=== PATIENT | female | born 1930 | race Caucasian/White ===

== ENCOUNTER 2018-02-08 13:36 | Emergency (ER) | payer OTHER ==
[2018-02-08] MEDS ORDERED: DEXAMETHASONE 4 MG TAB ONE (14:53)
[2018-02-08] MEDS ORDERED: AZITHROMYCIN 250 MG TAB ONE (14:53)
--- NOTE | 2018-02-08 14:58 | EDPHYS ---
Physician Documentation [facility] Name: Mely Vivas Age: 87 yrs Sex: Female : 1930 Arrival Date: 02/08/2018 Time: 13:39 Bed 18 Private MD: Celia Barnhart ED Physician Sedrick Cruz HPI: 02/08 14:35 This 87 yrs old Female presents to ER via Wheelchair with complaints of javier Dizziness, Ear Pain. 14:35 The patient presents with dizziness. Onset: The symptoms/episode began/occurred 3 javier day(s) ago. Context: occurred at an unknown location. Modifying factors: The symptoms are alleviated by closing eyes, holding head still, the symptoms are aggravated by movement of head. Associated signs and symptoms: Pertinent positives: nausea. Severity of symptoms: At their worst the symptoms were mild in the emergency department the symptoms are unchanged. The patient has experienced similar episodes in the past, a few times. Historical: - Allergies: 13:43 PENICILLINS; la1 13:43 Sulfa (Sulfonamide Antibiotics); la1 - PMHx: 13:43 GERD; Hypertension; Vertigo; la1 - Immunization history:: Adult Immunizations up to date. - Social history:: Smoking status: Patient/guardian denies using tobacco. - Ebola Screening: : No symptoms or risks identified at this time. - Family history:: not pertinent. ROS: 14:35 Constitutional: Negative for fever, chills, and weight loss, Eyes: Negative for injury, javier pain, redness, and discharge, Neck: Negative for injury, pain, and swelling, Cardiovascular: Negative for chest pain, palpitations, and edema, Respiratory: Negative for shortness of breath, cough, wheezing, and pleuritic chest pain, Abdomen/GI: Negative for abdominal pain, nausea, vomiting, diarrhea, and constipation, Back: Negative for injury and pain, : Negative for injury, bleeding, discharge, and swelling, MS/Extremity: Negative for injury and deformity, Skin: Negative for injury, rash, and discoloration, Neuro: Negative for headache, weakness, numbness, tingling, and seizure, Psych: Negative for depression, anxiety, suicide ideation, homicidal ideation, and hallucinations, Allergy/Immunology: Negative for hives, rash, and allergies, Endocrine: Negative for neck swelling, polydipsia, polyuria, polyphagia, and marked weight changes, Hematologic/Lymphatic: Negative for swollen nodes, abnormal bleeding, and unusual bruising. 14:35 ENT: Positive for pulling at ears, rhinorrhea, sinus congestion, sinus pain. Exam: 14:35 Constitutional: This is a well developed, well nourished patient who is awake, alert, javier and in no acute distress. Head/Face: Normocephalic, atraumatic. Eyes: Pupils equal round and reactive to light, extra-ocular motions intact. Lids and lashes normal. Conjunctiva and sclera are non-icteric and not injected. Cornea within normal limits. Periorbital areas with no swelling, redness, or edema. Neck: Trachea midline, no thyromegaly or masses palpated, and no cervical lymphadenopathy. Supple, full range of motion without nuchal rigidity, or vertebral point tenderness. No Meningismus. Chest/axilla: Normal chest wall appearance and motion. Nontender with no deformity. No lesions are appreciated. Cardiovascular: Regular rate and rhythm with a normal S1 and S2. No gallops, murmurs, or rubs. Normal PMI, no JVD. No pulse deficits. Respiratory: Lungs have equal breath sounds bilaterally, clear to auscultation and percussion. No rales, rhonchi or wheezes noted. No increased work of breathing, no retractions or nasal flaring. Abdomen/GI: Soft, non-tender, with normal bowel sounds. No distension or tympany. No guarding or rebound. No evidence of tenderness throughout. Back: No spinal tenderness. No costovertebral tenderness. Full range of motion. Female : Normal external genitalia. Skin: Warm, dry with normal turgor. Normal color with no rashes, no lesions, and no evidence of cellulitis. 14:35 ENT: TM's: decreased mobility, dullness, erythema, that is mild, that is moderate, on the right, fluid levels, is not appreciated, hemotympanum, is not appreciated, rupture, is not appreciated. Vital Signs: 13:43 BP 166 / 66; Pulse 73; Resp 16; Temp 97.8; Pulse Ox 97% on R/A; Weight 54.43 kg; Height la1 5 ft. 0 in. (152.40 cm); 13:43 Body Mass Index 23.44 (54.43 kg, 152.40 cm) la1 MDM: 14:24 Patient medically screened. [facility] 14:58 Data reviewed: vital signs, nurses notes. [facility] Administered Medications: 14:56 Drug: Zithromax 500 mg Route: PO; ss 14:56 Drug: Decadron 2 mg Route: PO; ss Disposition: 02/08/18 14:58 Discharged to Home. Impression: Otitis media, unspecified, right ear, Dizziness and giddiness. - Condition is Stable. - Discharge Instructions: Benign Positional Vertigo, Dizziness, Otitis Media, Adult, Dizziness, [id number]. - Prescriptions for Ruma- D 12 Hour 60-120 mg Oral Tablet Sustained Release 12 hr - take 1 tablet by ORAL route once daily As needed; 14 tablet. Zithromax Z- Tariq 250 mg Oral Tablet - take 1 tablet by ORAL route as directed for 5 days Day 1 - take two (2) tablets one time. Day 2, 3, 4 , 5 take one (1) tablet once daily.; 6 tablet. Medrol (Tariq) 4 mg Oral Tablets, Dose Pack - take 1 tablet by ORAL route as directed - follow package instructions; 1 packet. - Medication Reconciliation Form, Thank You Letter, Antibiotic Education, Prescription Opioid Use form. - Follow up: Celia Barnhart; When: 2 - 3 days; Reason: Recheck today's complaints, Continuance of care, Re-evaluation by your physician. Follow up: April Ernst; When: 2 - 3 days; Reason: Recheck today's complaints, Re-evaluation by your physician. - Problem is new. - Symptoms have improved. Signatures: Sloane Arellano RN RN aj1 Sedrick Cruz MD MD cha Smirch, Shelby, RN RN Vahe Camp RN RN la1 Corrections: (The following items were deleted from the chart) 15:17 14:58 02/08/2018 14:58 Discharged to Home. Impression: Otitis media, unspecified, right aj1 ear; Dizziness and giddiness. Condition is Stable. Discharge Instructions: Benign Positional Vertigo, Dizziness, Otitis Media, Adult, Dizziness, [id number]. Prescriptions for Ruma-D 12 Hour 60-120 mg Oral Tablet Sustained Release 12 hr - take 1 tablet by ORAL route once daily As needed; 14 tablet, Zithromax Z-Tariq 250 mg Oral Tablet - take 1 tablet by ORAL route as directed for 5 days Day 1 - take two (2) tablets one time. Day 2, 3, 4 , 5 take one (1) tablet once daily.; 6 tablet, Medrol (Tariq) 4 mg Oral Tablets, Dose Pack - take 1 tablet by ORAL route as directed - follow package instructions; 1 packet. and Forms are Medication Reconciliation Form, Thank You Letter, Antibiotic Education, Prescription Opioid Use. Follow up: Celia Barnhart; When: 2 - 3 days; Reason: Recheck today's complaints, Continuance of care, Re-evaluation by your physician. Follow up: April Ernst; When: 2 - 3 days; Reason: Recheck today's complaints, Re-evaluation by your physician. Problem is new. Symptoms have improved. javier
--- NOTE | 2018-02-08 14:58 | ER ---
Nurse's Notes [facility] Name: Mely Vivas Age: 87 yrs Sex: Female : 1930 Arrival Date: 02/08/2018 Time: 13:39 Bed 18 Private MD: Celia Barnhart Diagnosis: Otitis media, unspecified, right ear;Dizziness and giddiness Presentation: 02/08 13:41 Presenting complaint: Patient states: I woke up this morning with dizziness, I have had la1 alcon ear congestion but right ear pain since . Pt reports lots of trouble with ears but unable to see ENT. Transition of care: patient was not received from another setting of care. Onset of symptoms was February 08, 2018. Risk Assessment: Do you want to hurt yourself or someone else? Patient reports no desire to harm self or others. Initial Sepsis Screen: Does the patient meet any 2 criteria? No. Patient's initial sepsis screen is negative. Does the patient have a suspected source of infection? No. Patient's initial sepsis screen is negative. Care prior to arrival: None. 13:41 Method Of Arrival: Wheelchair la1 13:41 Acuity: RALPH 3 la1 Triage Assessment: 13:46 Neuro: Level of Consciousness is awake, alert, obeys commands, Oriented to person, la1 place, time, situation, Intranet Developer are equal bilaterally Speech is normal, Facial symmetry appears normal. Historical: - Allergies: 13:43 PENICILLINS; la1 13:43 Sulfa (Sulfonamide Antibiotics); la1 - PMHx: 13:43 GERD; Hypertension; Vertigo; la1 - Immunization history:: Adult Immunizations up to date. - Social history:: Smoking status: Patient/guardian denies using tobacco. - Ebola Screening: : No symptoms or risks identified at this time. - Family history:: not pertinent. Screenin:40 Abuse screen: Denies threats or abuse. Denies injuries from another. Nutritional ss screening: No deficits noted. Tuberculosis screening: No symptoms or risk factors identified. Never had TB. Assessment: 14:40 General: Appears in no apparent distress. comfortable, Behavior is calm, cooperative. ss Pain: Denies pain. Neuro: Level of Consciousness is awake, alert, obeys commands, Oriented to person, place, time, situation, Intranet Developer are equal bilaterally Gait is steady, Speech is normal, Reports dizziness, since this morning. Cardiovascular: Capillary refill < 3 seconds is brisk in bilateral fingers. Respiratory: Airway is patent Respiratory effort is even, unlabored, Respiratory pattern is regular, symmetrical, Breath sounds are clear bilaterally. GI: Patient currently denies abdominal pain, diarrhea, nausea, vomiting. EENT: Nares are clear Oral mucosa is moist. Reports bilateral ear congestion. Derm: Skin is fragile, is thin, Skin is pink, warm \T\ dry. normal. Musculoskeletal: Circulation, motion, and sensation intact. Range of motion: intact in all extremities, Swelling absent. Vital Signs: 13:43 BP 166 / 66; Pulse 73; Resp 16; Temp 97.8; Pulse Ox 97% on R/A; Weight 54.43 kg; Height la1 5 ft. 0 in. (152.40 cm); 13:43 Body Mass Index 23.44 (54.43 kg, 152.40 cm) la1 ED Course: 13:39 Patient arrived in ED. sb2 13:40 Celia Barnhart MD is Private Physician. sb2 13:42 Triage completed. la1 13:43 Arm band placed on left wrist. la1 14:24 Sedrick Cruz MD is Attending Physician. javier 14:40 Patient has correct armband on for positive identification. Bed in low position. Call ss light in reach. Adult w/ patient. 14:56 Sloane Arellano, RN is Primary Nurse. aj1 14:58 Celia Barnhart MD is Referral Physician. javier 14:58 April Ernst MD is Referral Physician. javier Administered Medications: 14:56 Drug: Zithromax 500 mg Route: PO; ss 14:56 Drug: Decadron 2 mg Route: PO; ss Outcome: 14:58 Discharge ordered by . javier 15:17 Patient left the ED. aj1 Signatures: Sloane Arellano, DANIELLA RN aj1 Sedrick Cruz MD MD cha Smirch, Shelby, RN RN Vahe Camp RN RN laDebby Olivia sb2
[2018-02-08 15:39] VITALS: BP 166/66; TEMP 97.8; O2SAT 97
== END 2018-02-08 15:17 | disposition home or self-care (01) ==
LOC: ER 13:36
DX: H66.91 Otitis media, unspecified, right ear (principal); R42 Dizziness and giddiness; Z88.0 Allergy status to penicillin; Z88.2 Allergy status to sulfonamides
CPT/HCPCS: 99282

== ENCOUNTER 2018-12-20 09:56 | Emergency (ER) | payer OTHER ==
--- OUTSIDE RECORDS SUMMARY | 2018-12-20 09:58 | XMS REPORT ---
:1930 Author Organization [employer] Care Team Providers Name Role Phone Barnhart, Na Provider Role Unavailable Allergies No Known Allergies Problems Problem Type Condition Code Onset Dates Condition Status Problem GERD (gastroesophageal reflux K21.9 Active disease) Problem Abnormal mammogram R92.8 Active Problem Unsteady gait R26.81 Active Problem Irritable bowel syndrome with both K58.2 Active constipation and diarrhea Problem Seasonal allergies J30.2 Active Problem Anxiety F41.9 Active Problem Benign essential HTN I10 Active Problem Hyperlipidemia E78.5 Active Problem Allergic rhinitis J30.9 Active Medications Medication Code Code Instructions Start End Date Status Dosage System Date Zyrtec Allergy [facility] 96654218039 10 MG Orally Active 1 tablet Once a day Results No Known Results Summary Purpose eClinical[employer] Submission
--- OUTSIDE RECORDS SUMMARY | 2018-12-20 09:58 | XMS REPORT ---
:1930 Author Organization [employer] Care Team Providers Name Role Phone Barnhart, Na Provider Role Unavailable Allergies No Known Allergies Problems Problem Type Condition Code Onset Dates Condition Status Problem GERD (gastroesophageal reflux K21.9 Active disease) Problem Abnormal mammogram R92.8 Active Assessment Fatigue, unspecified type R53.83 Active Problem Unsteady gait R26.81 Active Problem Irritable bowel syndrome with both K58.2 Active constipation and diarrhea Problem Seasonal allergies J30.2 Active Problem Anxiety F41.9 Active Problem Benign essential HTN I10 Active Problem Hyperlipidemia E78.5 Active Problem Allergic rhinitis J30.9 Active Medications No Known Medications Results No Known Results Summary Purpose eClinical[employer] Submission
--- OUTSIDE RECORDS SUMMARY | 2018-12-20 09:58 | XMS REPORT ---
:1930 [facility] Address [address] [place] [address] Dr. Courtney [address] [place] [address] Care Team Providers Name Role Phone Unavailable Unavailable Unavailable Problems This patient has no known problems. Allergies, Adverse Reactions, Alerts This patient has no known allergies or adverse reactions. Medications This patient has no known medications.
--- OUTSIDE RECORDS SUMMARY | 2018-12-20 09:58 | XMS REPORT ---
:1930 Author Organization [employer] Care Team Providers Name Role Phone Barnhart, Na Provider Role Unavailable Allergies, Adverse Reactions, Alerts Substance Reaction Event Type PCN Info Not Available Drug Allergy Tekturna Info Not Available Drug Allergy Diovan Info Not Available Drug Allergy Problems Problem Type Condition Code Onset Dates Condition Status Problem GERD (gastroesophageal reflux K21.9 Active disease) Problem Abnormal mammogram R92.8 Active Assessment Upper respiratory tract infection, J06.9 Active unspecified type Problem Unsteady gait R26.81 Active Problem Irritable bowel syndrome with both K58.2 Active constipation and diarrhea Problem Seasonal allergies J30.2 Active Problem Anxiety F41.9 Active Problem Benign essential HTN I10 Active Problem Hyperlipidemia E78.5 Active Problem Allergic rhinitis J30.9 Active Medications Medication Code Code Instructions Start End Status Dosage System Date Date BusPIRone HCl [facility] 14651237896 5 MG Orally Jul 17, Active 1 tablets Twice a day 2017 Nasonex [facility] 32072561883 50 MCG/ACT Active 2 sprays in Nasally Once a each nostril day Procardia XL [facility] [address]-36 60 MG Orally Active 1 tablet Once a day Zyrtec Allergy ND 35785501892 10 MG Orally Active 1 tablet Once a day Omeprazole ND 56795545368 20 MG Orally Active 1 capsule Once a day Restasis [facility] 17095008692 0.05 % Active 1 drop into Ophthalmic affected eye Twice a day Aspirin 81 ND 02614474587 81 MG Orally Active 1 tablet Once a day Triamcinolone ND 54670914272 0.1 % July Active 1 application Acetonide Externally 12, to affected Twice a day 2018 area Zithromax Z-Tariq ND 47003374605 250 MG Orally August Active 2 tablets on Once a day , , the first 2018 2018 day, then 1 tablet daily for 4 days Topiramate [facility] 38286406969 25 MG Orally Jul 17, Active 1 tablet Twice a day 2017 [facility] 16373132068 10 MG Orally Active 1 tablet in Once a day the evening Results No Known Results Summary Purpose eClinicalWorks Submission
[2018-12-20] MEDS ORDERED: NA CHLORIDE 0.9% 1,000 ML ONE (10:49)
[2018-12-20] MEDS ORDERED: MORPHINE 2 MG/ML SYR ONE (10:49)
[2018-12-20] MEDS ORDERED: ONDANSETRON 4 MG/2 ML VIAL ONE (10:49)
[2018-12-20 11:26] LABS: Absolute Lymphocytes (CBC) 1.5 K/uL (0.7-4.9); Basophils % 0.7 % (0-1.3); Hematocrit 42.7 % (36.0-45.0); Lymphocytes % 26.2 % (15.3-44.8); MPV 7.8 fL (7.6-11.3); RBC Red Blood Cell Count 4.81 M/uL (3.86-4.86)
[2018-12-20 11:33] LABS: Urine Bacteria <20 /HPF (<20); Urine Culture Reflex Order NOT NEEDED; Urine RBC <5 /HPF (NONE SEEN)
[2018-12-20 11:35] LABS: Albumin 4.1 g/dL (3.4-5.0); Bilirubin Direct 0.2 mg/dL (0-0.2); Bilirubin Total 0.6 mg/dL (0.2-1.0); Magnesium 2.1 mg/dL (1.8-2.4); Potassium 3.3 mmol/L (3.5-5.1); Protein, Total 8.1 g/dL (6.4-8.2)
[2018-12-20 11:47] LABS: Urine Blood TRACE (NEG); Urine Glucose NEGATIVE (NEG); Urine Protein TRACE (NEG); Urine Specific Gravity 1.015 (1.005-1.030)
--- NOTE | 2018-12-20 12:38 | RAD REPORT ---
EXAM DESCRIPTION: CT - Angio Aorta For Dissection - 12/20/2018 12:06 pm CLINICAL HISTORY: . Chest pain COMPARISON: CT abdomen 2018 TECHNIQUE: Computed tomography angiography of the chest, abdomen pelvis were obtained. 100 cc Isovue 370 was administered intravenously. Coronal and sagittal reconstruction were performed. MIP 3D reconstruction was performed All CT scans are performed using dose optimization technique as appropriate and may include automated exposure control or mA/KV adjustment according to patient size. FINDINGS: An aortic dissection is not seen. An aortic aneurysm is not displayed. The celiac, SMA and DEION are patent . A lung consolidation is not present. A pericardial effusion is not seen. A pleural effusion is not n oted. The liver,spleen, pancreas adrenals kidneys demonstrate no significant abnormality. Small umbilical hernia. Small duodenal diverticulum IMPRESSION: Negative for an aortic dissection.
[2018-12-20] MEDS ORDERED: KETOROLAC 30 MG/ML INJ ONE (12:58)
--- NOTE | 2018-12-20 13:14 | ER ---
Nurse's Notes [facility] Name: Mely Vivas Age: 88 yrs Sex: Female : 1930 Arrival Date: 12/20/2018 Time: 10:03 Bed 16 Private MD: Diagnosis: Low back pain Presentation: 12/20 10:05 Presenting complaint: Patient states: i leaned over last and since then my hj lower back started hurting, i have hx of diverticulitis, id ont know which one is already; denies fever and chills; denies N/V; denies diarrhea; reports pain of 10/10;. Transition of care: patient was not received from another setting of care. Onset of symptoms was December 20, 2018. Risk Assessment: Do you want to hurt yourself or someone else? Patient reports no desire to harm self or others. Initial Sepsis Screen: Does the patient meet any 2 criteria? No. Patient's initial sepsis screen is negative. Does the patient have a suspected source of infection? No. Patient's initial sepsis screen is negative. Care prior to arrival: None. 10:05 Method Of Arrival: Ambulatory hj 10:05 Acuity: RALPH 3 hj Historical: - Allergies: 10:07 PENICILLINS; hj 10:07 Sulfa (Sulfonamide Antibiotics); hj - PMHx: 10:07 GERD; Hypertension; Vertigo; hj - PSHx: 10:07 None; hj - Immunization history:: Adult Immunizations up to date. - Social history:: Smoking status: Patient/guardian denies using tobacco. - Ebola Screening: : Patient negative for fever greater than or equal to 101.5 degrees Fahrenheit, and additional compatible Ebola Virus Disease symptoms Patient denies exposure to infectious person Patient denies travel to an Ebola-affected area in the 21 days before illness onset No symptoms or risks identified at this time. Screenin:30 Abuse screen: Denies threats or abuse. Denies injuries from another. Nutritional sg screening: No deficits noted. Tuberculosis screening: No symptoms or risk factors identified. Never had TB. Fall Risk None identified. Assessment: 10:20 General: Appears in no apparent distress. well groomed, well developed, well nourished, sg Behavior is calm, cooperative, appropriate for age. Pain: Complains of pain in lumbar area Quality of pain is described as aching, sharp, stabbing. Neuro: Level of Consciousness is awake, alert, obeys commands, Oriented to person, place, time, Crop Grain Or Livestock Farm Manager are equal bilaterally Moves all extremities. Full function Gait is steady, Speech is normal, Facial symmetry appears normal. Cardiovascular: Heart tones S1 S2 present Patient's skin is warm and dry. Chest pain is denied. Respiratory: Airway is patent Respiratory effort is even, unlabored, Respiratory pattern is regular, symmetrical. GI: Abdomen is flat, non-distended. : No signs and/or symptoms were reported regarding the genitourinary system. EENT: No signs and/or symptoms were reported regarding the EENT system. Derm: Skin is pink, warm \T\ dry. Musculoskeletal: Circulation, motion, and sensation intact. Range of motion: intact in all extremities, Swelling absent. 11:14 Reassessment: Patient appears in no apparent distress at this time. Patient and/or sg family updated on plan of care and expected duration. Pain level reassessed. Vital Signs: 10:03 BP 143 / 60; Pulse 81; Resp 18; Temp 98.7(O); Pulse Ox 96% on R/A; Weight 56.7 kg; hj Height 5 ft. 0 in. (152.40 cm); Pain 10/10; 10:03 Body Mass Index 24.41 (56.70 kg, 152.40 cm) ED Course: 10:03 Patient arrived in ED. hj 10:06 Triage completed. hj 10:06 Arm band placed on left wrist. hj 10:22 Sedrick Ulloa PA is PHCP. cp 10:22 Salo Galindo MD is Attending Physician. cp 10:30 Hussein Clark, DANIELLA is Primary Nurse. sg 10:30 Patient has correct armband on for positive identification. Bed in low position. Call sg light in reach. Side rails up X2. Pulse ox on. NIBP on. Warm blanket given. Head of bed elevated. 11:14 Initial lab(s) drawn, by me, sent to lab. Missed attempt(s): 22 gauge in left sg antecubital area. Bleeding controlled, band aid applied, catheter tip intact. 11:16 Radiology exam delayed due to lab results not completed at this time. (BUN/Creatinine). bq 11:29 Inserted saline lock: 22 gauge in left forearm, using aseptic technique. ms 11:[address] sg 12:05 CT completed. Patient tolerated procedure well. Patient moved back from CT. bq 12:07 CT Aorta for Dissection In Process Unspecified. EDMS 13:40 No provider procedures requiring assistance completed. IV discontinued, intact, sg bleeding controlled, No redness/swelling at site. Pressure dressing applied. Administered Medications: 11:13 Not Given (Patient Refused): morphine 2 mg IVP once sg 11:14 Not Given (Patient Refused): Zofran 4 mg IVP once; over 2 minutes sg 13:09 Drug: NS 0.9% 250 ml Route: IV; Rate: bolus; Site: left forearm; sg 13:09 Drug: TORadol - Ketorolac 15 mg Route: IVP; Site: left forearm; sg 13:17 Follow up: Response: No adverse reaction sg 13:25 Not Given (orders to dc pt to home): NS 0.9% 1000 ml IV at 75 ml/hr continuous sg Outcome: 13:13 Discharge ordered by . cp 13:40 Discharged to home ambulatory, with family. sg 13:40 Condition: good 13:40 Discharge instructions given to patient, family, vp compliance, Instructed on discharge instructions, follow up and referral plans. medication usage, safety practices, Demonstrated understanding of instructions, follow-up care, medications, Prescriptions given X 2. 13:46 Patient left the ED. rn Signatures: Dispatcher [employer] EDMS Hussein Clark RN RN sg Quilty, Betty bq Solis, Maria ms Salo Galindo MD MD rn Joaquin, Henry, RN RN hj Page, Corey, PA PA cp Corrections: (The following items were deleted from the chart) 10:04 10:03 BP 143 / 60; hj hj
--- NOTE | 2018-12-20 13:14 | EDPHYS ---
Physician Documentation [facility] Name: Mely Vivas Age: 88 yrs Sex: Female : 1930 Arrival Date: 12/20/2018 Time: 10:03 Bed 16 Private MD: ED Physician Salo Galindo HPI: 12/20 11:00 This 88 yrs old Female presents to ER via Ambulatory with complaints of Low cp Back Pain. 11:00 The patient presents with pain that is acute. cp 11:00 The symptoms are located in the low back. The pain radiates to the abdomen. The problem cp was sustained when bending over. Onset: The symptoms/episode began/occurred 2 day(s) ago. Associated signs and symptoms: Pertinent negatives: chest pain, constipation, dysuria, fever, incontinence, numbness, tingling, urinary retention, vomiting, weakness. Severity of symptoms: in the emergency department the symptoms are unchanged, despite home interventions. Historical: - Allergies: 10:07 PENICILLINS; hj 10:07 Sulfa (Sulfonamide Antibiotics); hj - PMHx: 10:07 GERD; Hypertension; Vertigo; hj - PSHx: 10:07 None; hj - Immunization history:: Adult Immunizations up to date. - Social history:: Smoking status: Patient/guardian denies using tobacco. - Ebola Screening: : Patient negative for fever greater than or equal to 101.5 degrees Fahrenheit, and additional compatible Ebola Virus Disease symptoms Patient denies exposure to infectious person Patient denies travel to an Ebola-affected area in the 21 days before illness onset No symptoms or risks identified at this time. ROS: 11:05 Constitutional: Negative for body aches, chills, fever, poor PO intake. cp 11:05 Eyes: Negative for injury, pain, redness, and discharge. cp 11:05 ENT: Negative for drainage from ear(s), ear pain, sore throat, difficulty swallowing, difficulty handling secretions. 11:05 Cardiovascular: Negative for chest pain, edema, palpitations. 11:05 Respiratory: Negative for cough, shortness of breath, wheezing. 11:05 Abdomen/GI: Positive for abdominal pain, Negative for nausea, vomiting, and diarrhea, constipation, black/tarry stool, rectal bleeding, bowel incontinence. 11:05 Back: Positive for pain with movement, pain with standing. 11:05 : Negative for urinary symptoms, difficulty urinating, bladder incontinence. 11:05 Skin: Negative for rash. 11:05 Neuro: Negative for altered mental status, headache, weakness. 11:05 All other systems are negative. Exam: 11:15 Constitutional: The patient appears in no acute distress, alert, awake, cp non-diaphoretic, non-toxic, well developed, well nourished. 11:15 Head/Face: Normocephalic, atraumatic. cp 11:15 Eyes: Periorbital structures: appear normal, Conjunctiva: normal, no exudate, no injection, Sclera: no appreciated abnormality, Lids and lashes: appear normal, bilaterally. 11:15 ENT: External ear(s): are unremarkable, Nose: is normal, Mouth: Lips: moist, Oral mucosa: moist, Posterior pharynx: is normal, airway is patent, no erythema, no exudate. 11:15 Chest/axilla: Inspection: normal, Palpation: is normal, no crepitus, no tenderness. 11:15 Cardiovascular: Rate: normal, Rhythm: regular, Edema: is not appreciated, JVD: is not appreciated. 11:15 Respiratory: the patient does not display signs of respiratory distress, Respirations: normal, no use of accessory muscles, no retractions, no splinting, no tachypnea, labored breathing, is not present, Breath sounds: are clear throughout, no decreased breath sounds, no stridor, no wheezing. 11:15 Abdomen/GI: Inspection: abdomen appears normal, Bowel sounds: active, all quadrants, Palpation: soft, in all quadrants, mild abdominal tenderness, in the mid abdomen, rebound tenderness, is not appreciated, voluntary guarding, is not appreciated, involuntary guarding, is not appreciated. 11:15 Back: pain, that is moderate, of the low back area and mid back area, ROM is painful, with flexion, vertebral tenderness, is not appreciated, Straight leg raises: of both lower extremities does not illicit pain. 11:15 Skin: no rash present. 11:15 Neuro: Orientation: to person, place \T\ time. Mentation: is normal, Motor: moves all fours, strength is normal, Sensation: is normal. Vital Signs: 10:03 BP 143 / 60; Pulse 81; Resp 18; Temp 98.7(O); Pulse Ox 96% on R/A; Weight 56.7 kg; hj Height 5 ft. 0 in. (152.40 cm); Pain 10; 10:03 Body Mass Index 24.41 (56.70 kg, 152.40 cm) hj MDM: 10:28 Patient medically screened. cp 11:00 Differential diagnosis: sciatica, Herniated disc UTI, diverticulitis, abdominal cp aneurysm. 13:12 Data reviewed: vital signs, nurses notes, lab test result(s), radiologic studies, CT cp scan, and as a result, I will discharge patient. 13:12 Counseling: I had a detailed discussion with the patient and/or guardian regarding: the cp historical points, exam findings, and any diagnostic results supporting the discharge/admit diagnosis, lab results, radiology results, to return to the emergency department if symptoms worsen or persist or if there are any questions or concerns that arise at home. Response to treatment: the patient's symptoms have markedly improved after treatment, and as a result, I will discharge patient. ED course: VSS. Pain improved. CT negative for acute findings. Will discharge to home for continued monitoring. 12/20 10:40 Order name: Basic Metabolic Panel; Complete Time: 12:41 cp 12/20 12:41 Interpretation: Normal except: K 3.3; GFR 73. cp 12/20 10:40 Order name: CBC with Diff; Complete Time: 11:29 cp 12/20 10:40 Order name: Creatinine for Radiology; Complete Time: 12:41 cp 12/20 10:40 Order name: Hepatic Function; Complete Time: 12:41 cp 12/20 12:41 Interpretation: Normal except: GLOB 4.0; A/G 1.0. cp 12/20 10:40 Order name: Lipase; Complete Time: 12:41 cp 12/20 10:40 Order name: Urine Microscopic Only; Complete Time: 12:41 cp 12/20 12:41 Interpretation: Normal except: SQEPI 5-10. cp 12/20 10:40 Order name: Magnesium; Complete Time: 12:41 cp 12/20 10:59 Order name: CT Aorta for Dissection; Complete Time: 12:41 cp 12/20 11:10 Order name: Urine Dipstick--Ancillary (enter results); Complete Time: 12:41 eb 12/20 12:42 Interpretation: Normal except: UKET 1+; UBLD TRACE. cp 12/20 10:40 Order name: IV Saline Lock; Complete Time: 11:14 cp 12/20 10:40 Order name: Labs collected and sent; Complete Time: 11:14 cp 12/20 10:40 Order name: Urine Dipstick-Ancillary (obtain specimen); Complete Time: 13:18 cp Administered Medications: 11:13 Not Given (Patient Refused): morphine 2 mg IVP once sg 11:14 Not Given (Patient Refused): Zofran 4 mg IVP once; over 2 minutes sg 13:09 Drug: NS 0.9% 250 ml Route: IV; Rate: bolus; Site: left forearm; sg 13:09 Drug: TORadol - Ketorolac 15 mg Route: IVP; Site: left forearm; sg 13:17 Follow up: Response: No adverse reaction sg 13:25 Not Given (orders to dc pt to home): NS 0.9% 1000 ml IV at 75 ml/hr continuous sg Disposition: 17:33 Co-signature as Attending Physician, Salo Galindo MD. rn Disposition: 12/20/18 13:13 Discharged to Home. Impression: Low back pain. - Condition is Stable. - Discharge Instructions: Back Pain, Adult, Back Exercises, [id number]-[id number]. - Prescriptions for Ibuprofen 600 mg Oral Tablet - take 1 tablet by ORAL route every 8 hours As needed take with food; 30 tablet. Tramadol 50 mg Oral Tablet - take 1 tablet by ORAL route every 8 hours as needed; 15 tablet. - Medication Reconciliation Form, Thank You Letter, Antibiotic Education, Prescription Opioid Use form. - Follow up: Private Physician; When: 1 - 2 days; Reason: Recheck today's complaints. - Problem is new. - Symptoms have improved. Addendum: 12/21/2018 15:00 Co-signature as Attending Physician, Salo Galindo MD. r n Signatures: Dispatcher [employer] Hussein Cortés RN RN sg Nieto, Roman, MD MD rn Joaquin, Henry RN Sedrick Moreno PA PA cp Corrections: (The following items were deleted from the chart) 12/20 13:46 13:13 12/20/2018 13:13 Discharged to Home. Impression: Low back pain. Condition is rn Stable. Forms are Medication Reconciliation Form, Thank You Letter, Antibiotic Education, Prescription Opioid Use. Follow up: Private Physician; When: 1 - 2 days; Reason: Recheck today's complaints. Problem is new. Symptoms have improved. cp
[2018-12-20 13:52] VITALS: BP 143/60; TEMP 98.7; O2SAT 96
== END 2018-12-20 13:46 | disposition home or self-care (01) ==
LOC: ER 09:56
DX: M54.5 Low back pain (principal); I10 Essential (primary) hypertension; Z88.0 Allergy status to penicillin; Z88.2 Allergy status to sulfonamides
CPT/HCPCS: 85025; 80048; 36415; 83735; 80076; 83690; 71275; 74175; 96375; 96374; 99284; Q9967; J7030; 81003; 81015; J2270; J2405

== ENCOUNTER 2018-12-29 09:34 | Emergency (ER) | payer OTHER ==
--- OUTSIDE RECORDS SUMMARY | 2018-12-29 09:49 | XMS REPORT ---
[...] Date Status Dosage System Date Zyrtec Allergy [facility] 30997176243 10 MG Orally Active 1 tablet Once a day Results No Known Results Summary Purpose eClinicalWorks Submission
--- OUTSIDE RECORDS SUMMARY | 2018-12-29 09:49 | XMS REPORT ---
[...] Status Dosage System Date Date BusPIRone HCl [facility] 99252013164 5 MG Orally Jul 17, Active 1 tablets Twice a day 2017 Nasonex [facility] 07432133426 50 MCG/ACT Active 2 sprays in Nasally Once a each nostril day Procardia XL [facility] [address]-02 60 MG Orally Active 1 tablet Once a day Zyrtec Allergy ND 76337942447 10 MG Orally Active 1 tablet Once a day Omeprazole ND 78588715148 20 MG Orally Active 1 capsule Once a day Restasis [facility] 89429303659 0.05 % Active 1 drop into Ophthalmic affected eye Twice a day Aspirin 81 ND 90044467712 81 MG Orally Active 1 tablet Once a day Triamcinolone ND 33019635184 0.1 % July Active 1 application Acetonide Externally 12, to affected Twice a day 2018 area Zithromax Z-Tariq ND 58685195921 250 MG Orally August Active 2 tablets on Once a day , , the first 2018 2018 day, then 1 tablet daily for 4 days Topiramate [facility] 81980686982 25 MG Orally Jul 17, Active 1 tablet Twice a day 2017 [facility] 59993602922 10 MG Orally Active 1 tablet in Once a day the evening Results No Known Results Summary Purpose eClinicalWorks Submission
--- OUTSIDE RECORDS SUMMARY | 2018-12-29 09:49 | XMS REPORT ---
:1930 [facility] Address [address] [place] [address] Dr. Courtney [address] [place] [id number] Care Team Providers Name Role Phone Unavailable Unavailable Unavailable Problems This patient has no known problems. Allergies, Adverse Reactions, Alerts This patient has no known allergies or adverse reactions. Medications This patient has no known medications.
[2018-12-29] MEDS ORDERED: ONDANSETRON 4 MG/2 ML VIAL ONE (10:28)
[2018-12-29 10:46] LABS: Albumin 3.7 g/dL (3.4-5.0); Bilirubin Direct 0.1 mg/dL (0-0.2); Bilirubin Total 0.4 mg/dL (0.2-1.0); Potassium 3.3 mmol/L (3.5-5.1); Protein, Total 7.5 g/dL (6.4-8.2)
[2018-12-29 10:49] LABS: Absolute Lymphocytes (CBC) 0.9 K/uL (0.7-4.9); Basophils % 0.8 % (0-1.3); Hematocrit 39.8 % (36.0-45.0); Lymphocytes % 28.1 % (15.3-44.8); MPV 7.7 fL (7.6-11.3); RBC Red Blood Cell Count 4.54 M/uL (3.86-4.86)
[2018-12-29] MEDS ORDERED: NA CHLORIDE 0.9% 500 ML ONE (11:13)
[2018-12-29 11:44] LABS: Urine Blood TRACE (NEG); Urine Glucose NEGATIVE (NEG); Urine Protein NEGATIVE (NEG); Urine pH 6.5 (5.0-7.0)
[2018-12-29 11:44] LABS: Urine Bacteria NONE SEEN /HPF (<20); Urine Culture Reflex Order NOT NEEDED; Urine RBC <5 /HPF (NONE SEEN)
--- NOTE | 2018-12-29 12:04 | RAD REPORT ---
EXAM DESCRIPTION: CT - Abdomen Pelvis W Contrast - 12/29/2018 11:55 am CLINICAL HISTORY: Abdominal pain, abdominal distention, possible obstruction COMPARISON: CT dissection study December 20, 2018, CT abdomen and pelvis December 2017 TECHNIQUE: Biphasic, helical CT imaging of the abdomen and pelvis was performed following 100 ml non -ionic IV contrast. Oral contrast was given. All CT scans are performed using dose optimization technique as appropriate and may include automated exposure control or mA/KV adjustment according to patient size. FINDINGS: No suspicious findings in the lung bases. No pericardial thickening or effusion. Liver has a slightly nodular contour to the liver capsule. This is indirect evidence for cirrhosis or hepatic parenchymal disease. No focal liver lesions seen. Small accessory splenic nodule is present. No pancreatic abnormality. Gallbladder and biliary tree are also without suspicious finding. Symmetric renal function is seen with no hydronephrosis or suspicious renal mass. No pyelonephritis o r acute parenchymal process. Small renal cortical cysts are present similar to comparison. No adrenal abnormality seen. No acute urinary bladder finding. Uterus and ovaries also without suspicious findi ng. No gastric dilatation gastric wall thickening. No gastric outlet obstruction. No dilation of the smal l bowel. Minimal sigmoid diverticulosis is present. Sigmoid is quite tortuous and redundant. Moderate stool volume throughout the colon. Oral contrast has reached the right side of the colon. Ileocecal valve is normal. No appendicitis finding seen. No free air, free fluid or inflammatory stranding. No mass or bulky lymphadenopathy. Fat only umbili melissa hernia is small and unchanged from prior imaging. No suspicious bony findings. IMPRESSION: No bowel obstruction. There is moderate stool volume filling the colon but no acute GI p rocess seen. No free air, free fluid or surgically emergent finding. Capsular nodularity present that could indicate underlying hepatic parenchymal disease. There are no focal liver lesions present.
--- NOTE | 2018-12-29 12:37 | ER ---
Nurse's Notes [facility] Name: Mely Vivas Age: 88 yrs Sex: Female : 1930 Arrival Date: 12/29/2018 Time: 09:36 Bed 20 Private MD: Celia Barnhart Diagnosis: Constipation, unspecified;Muscle spasm Presentation: 12/29 09:38 Presenting complaint: Patient states: i have this back spasms and L shoulder pain that hj started weeks ago and my last BM was of last week; denies N/V; denies abd pain; denies trauma to the area;. Transition of care: patient was not received from another setting of care. Onset of symptoms was December 29, 2018. Risk Assessment: Do you want to hurt yourself or someone else? Patient reports no desire to harm self or others. Initial Sepsis Screen: Does the patient meet any 2 criteria? No. Patient's initial sepsis screen is negative. Does the patient have a suspected source of infection? No. Patient's initial sepsis screen is negative. Care prior to arrival: None. 09:38 Method Of Arrival: Ambulatory 09:38 Acuity: RALPH 4 hj Triage Assessment: 09:47 General: Appears in no apparent distress. comfortable, Behavior is cooperative, bp appropriate for age, anxious. Pain: Complains of pain in back. EENT: No deficits noted. Neuro: No deficits noted. Cardiovascular: No deficits noted. Respiratory: No deficits noted. GI: No signs and/or symptoms were reported involving the gastrointestinal system. : No signs and/or symptoms were reported regarding the genitourinary system. Derm: No deficits noted. Musculoskeletal: Circulation, motion, and sensation intact. Range of motion: intact in all extremities. Historical: - Allergies: 09:40 PENICILLINS; hj 09:40 Sulfa (Sulfonamide Antibiotics); hj - PMHx: 09:40 GERD; Hypertension; Vertigo; hj - PSHx: 09:40 None; hj - Immunization history:: Adult Immunizations up to date. - Social history:: Smoking status: Patient/guardian denies using tobacco. - Family history:: not pertinent. - Ebola Screening: : No symptoms or risks identified at this time. - Hospitalizations: : No recent hospitalization is reported. Screenin:48 Abuse screen: Denies threats or abuse. Denies injuries from another. Nutritional bp screening: No deficits noted. Tuberculosis screening: No symptoms or risk factors identified. Fall Risk None identified. Assessment: 09:48 General: SEE TRIAGE NOTE. Neuro: Level of Consciousness is awake, alert, obeys bp commands, Oriented to person, place, time, situation, Appropriate for age. 10:15 Reassessment: PT DRINKING PO CONTRAST. bp 10:38 Reassessment: PO CONTRAST COMPLETED, CT NOTIFIED. bp 12:30 Reassessment: PT CT COMPLETED. RESULTS PENDING. bp 13:51 Reassessment: D/C ON HOLD FOR TRANSPORT HOME, FAMILY EN ROUTE. bp 14:03 Reassessment: FAMILY AT B/S, PT D/C HOME VIA W/C. bp Vital Signs: 09:40 BP 150 / 64; Pulse 64; Resp 18; Temp 97.9(TE); Pulse Ox 96% on R/A; Weight 56.7 kg; hj Height 5 ft. 0 in. (152.40 cm); Pain 10/10; 11:09 BP 151 / 52; Pulse 66; Resp 14; Pulse Ox 94% ; bp 12:37 BP 145 / 54; Pulse 83; Resp 16; Pulse Ox 94% ; bp 13:51 BP 128 / 56; Pulse 81; Resp 16; Temp 98; Pulse Ox 97% ; bp 09:40 Body Mass Index 24.41 (56.70 kg, 152.40 cm) ED Course: 09:36 Patient arrived in ED. rg4 09:37 Celia Barnhart MD is Private Physician. rg4 09:40 Triage completed. hj 09:40 Arm band placed on right wrist. hj 09:46 Quintin Velasco, DANIELLA is Primary Nurse. bp 09:48 Patient has correct armband on for positive identification. Bed in low position. Call bp light in reach. Side rails up X2. Adult w/ patient. 09:57 Salo Galindo MD is Attending Physician. rn 10:21 Inserted saline lock: 20 gauge in left antecubital area, using aseptic technique. Blood ar5 collected. 11:56 CT Abd/Pelvis - PO and IV Contrast In Process Unspecified. EDMS 14:02 No provider procedures requiring assistance completed. IV discontinued, intact, bp bleeding controlled, No redness/swelling at site. Pressure dressing applied. Administered Medications: 10:15 Drug: Zofran 4 mg Route: IVP; Site: left antecubital; bp 11:13 Follow up: Response: No adverse reaction; Nausea is decreased bp 11:13 Drug: NS 0.9% 500 ml Route: IV; Rate: bolus; Site: left antecubital; bp 13:37 Follow up: IV Status: Completed infusion; IV Intake: 500ml bp 13:47 Drug: Fleet Enema 133 ml Route: KS; bp 13:47 Drug: Magnesium Citrate Liquid 300 ml Route: PO; bp Intake: 13:37 IV: 500ml; Total: 500ml. bp Outcome: 12:37 Discharge ordered by MD. rn 14:03 Discharged to home via wheelchair, with family. bp 14:03 Condition: stable 14:03 Discharge instructions given to patient, family, Instructed on discharge instructions, follow up and referral plans. medication usage, Demonstrated understanding of instructions, follow-up care, medications, Prescriptions given X 1. 14:04 Patient left the ED. bp Signatures: Dispatcher [employer] EDMS Salo Galindo MD MD rn Joaquin, Henry, RN RN hj Garcia, Rubi 4 Quintin Velasco RN RN bp Robles, Autumn ar5
--- NOTE | 2018-12-29 12:37 | EDPHYS ---
Physician Documentation [facility] Name: Mely Vivas Age: 88 yrs Sex: Female : 1930 Arrival Date: 12/29/2018 Time: 09:36 Bed 20 Private MD: Celia Barnhart ED Physician Salo Galindo HPI: 12/29 10:09 This 88 yrs old Female presents to ER via Ambulatory with complaints of rn muscle spasms, constipation. 10:10 The patient presents with abdominal distention. The patient presents with abdominal rn distention in the lower abdomen. Onset: The symptoms/episode began/occurred at an unknown time. The symptoms do not radiate. Associated signs and symptoms: Pertinent positives: constipation, Pertinent negatives: blood in stools, fever, shortness of breath, vomiting. Modifying factors: The symptoms are alleviated by nothing, the symptoms are aggravated by nothing. Severity of pain: At its worst the pain was mild in the emergency department the pain is unchanged. The patient has experienced similar episodes in the past. Reports back and shoulder muscle spasms that come and go, no recent trauma, has been happening for months. Here today more because hasn't had a BM in 4 days, is not normal for her, tried enema and only a little came out. Reports decreased appetite, no vomiting. + nausea. Denies previous bowel obstruction.. Historical: - Allergies: 09:40 PENICILLINS; hj 09:40 Sulfa (Sulfonamide Antibiotics); hj - PMHx: 09:40 GERD; Hypertension; Vertigo; hj - PSHx: 09:40 None; hj - Immunization history:: Adult Immunizations up to date. - Social history:: Smoking status: Patient/guardian denies using tobacco. - Family history:: not pertinent. - Ebola Screening: : No symptoms or risks identified at this time. - Hospitalizations: : No recent hospitalization is reported. ROS: 10:10 Constitutional: Negative for fever, chills, and weight loss, Eyes: Negative for injury, rn pain, redness, and discharge, Neck: Negative for injury, pain, and swelling, Cardiovascular: Negative for chest pain, palpitations, and edema, Respiratory: Negative for shortness of breath, cough, wheezing, and pleuritic chest pain, Abdomen/GI: Negative for vomiting, diarrhea Back: Negative for injury MS/Extremity: Negative for injury and deformity, Skin: Negative for injury, rash, and discoloration, Neuro: Negative for headache, weakness, numbness, tingling, and seizure. Exam: 10:10 Constitutional: This is a well developed, well nourished patient who is awake, alert, rn and in no acute distress. Head/Face: Normocephalic, atraumatic. ENT: MMM Cardiovascular: Regular rate and rhythm. No pulse deficits. Respiratory: Lungs have equal breath sounds bilaterally, clear to auscultation. No increased work of breathing, no retractions or nasal flaring. Abdomen/GI: soft, non-tender, no masses Skin: Warm, dry MS/ Extremity: Pulses equal, no cyanosis. Neurovascular intact. Full, normal range of motion. Equal circumference. Neuro: Awake and alert, GCS 15, oriented to person, place, time, and situation. Motor strength 5/5 in all extremities. Sensory grossly intact. Vital Signs: 09:40 BP 150 / 64; Pulse 64; Resp 18; Temp 97.9(TE); Pulse Ox 96% on R/A; Weight 56.7 kg; hj Height 5 ft. 0 in. (152.40 cm); Pain 10/10; 11:09 BP 151 / 52; Pulse 66; Resp 14; Pulse Ox 94% ; bp 12:37 BP 145 / 54; Pulse 83; Resp 16; Pulse Ox 94% ; bp 13:51 BP 128 / 56; Pulse 81; Resp 16; Temp 98; Pulse Ox 97% ; bp 09:40 Body Mass Index 24.41 (56.70 kg, 152.40 cm) MDM: 09:57 Patient medically screened. rn 12:34 Differential diagnosis: constipation. Data reviewed: vital signs, nurses notes, lab engineer test result(s), radiologic studies, CT scan, and as a result, I will discharge patient. Counseling: I had a detailed discussion with the patient and/or guardian regarding: the historical points, exam findings, and any diagnostic results supporting the discharge/admit diagnosis, lab results, radiology results, the need for outpatient follow up, to return to the emergency department if symptoms worsen or persist or if there are any questions or concerns that arise at home. Special discussion: Based on the patient's Hx, exam, and Dx evaluation, there is no indication for emergent surgery or inpatient Tx. It is understood by the patient/guardian that if the Sx's persist or worsen they need to return immediately for re-evaluation. I discussed with the patient/guardian in detail that at this point there is no indication for admission to the hospital. It is understood, however, that if the symptoms persist or worsen the patient needs to return immediately for re-evaluation. ED course: + constipation, no obstruction, will dc home with bowel regimen.. 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 Spoke with daughter on phone, recommended to stop pain meds, will give muscle relaxer instead for spasm, no acute findings on CT, no fecal impaction. Recommend water and laxatives. . 12/29 10:05 Order name: Urine Microscopic Only; Complete Time: 11:46 rn 12/29 10:05 Order name: Basic Metabolic Panel; Complete Time: 10:49 rn 12/29 10:05 Order name: CBC with Diff; Complete Time: 11:30 rn 12/29 10:05 Order name: Hepatic Function; Complete Time: 10:49 rn 12/29 10:05 Order name: Lipase; Complete Time: 10:49 rn 12/29 11:29 Order name: Urine Dipstick--Ancillary (enter results); Complete Time: 11:46 12/29 10:05 Order name: Urine Dipstick-Ancillary (obtain specimen); Complete Time: 11:06 rn 12/29 10:05 Order name: IV Saline Lock; Complete Time: 10:10 rn 12/29 10:05 Order name: Labs collected and sent; Complete Time: 10:20 rn 12/29 10:05 Order name: CT Abd/Pelvis - PO and IV Contrast; Complete Time: 12:33 rn Administered Medications: 10:15 Drug: Zofran 4 mg Route: IVP; Site: left antecubital; bp 11:13 Follow up: Response: No adverse reaction; Nausea is decreased bp 11:13 Drug: NS 0.9% 500 ml Route: IV; Rate: bolus; Site: left antecubital; bp 13:37 Follow up: IV Status: Completed infusion; IV Intake: 500ml bp 13:47 Drug: Fleet Enema 133 ml Route: SD; bp 13:47 Drug: Magnesium Citrate Liquid 300 ml Route: PO; bp Disposition: 12/29/18 12:37 Discharged to Home. Impression: Constipation, unspecified, Muscle spasm. - Condition is Stable. - Discharge Instructions: Constipation, Adult, Muscle Cramps and Spasms. - Prescriptions for Cyclobenzaprine 5 mg Oral Tablet - take 1 tablet by ORAL route every 12 hours As needed; 20 tablet. - Medication Reconciliation Form, Thank You Letter, Antibiotic Education, Prescription Opioid Use form. - Follow up: Private Physician; When: As needed; Reason: Recheck today's complaints, Re-evaluation by your physician. - Problem is new. - Symptoms have improved. Signatures: Dispatcher [employer] EDMS Salo Galindo MD MD rn Joaquin, Henry, RN RN hj Peltier, Brian, RN RN bp Corrections: (The following items were deleted from the chart) 14:04 12:37 12/29/2018 12:37 Discharged to Home. Impression: Constipation, unspecified; bp Muscle spasm. Condition is Stable. Forms are Medication Reconciliation Form, Thank You Letter, Antibiotic Education, Prescription Opioid Use. Follow up: Private Physician; When: As needed; Reason: Recheck today's complaints, Re-evaluation by your physician. Problem is new. Symptoms have improved. rn
[2018-12-29] MEDS ORDERED: FLEET ENEMA ADULT PR ONE (13:40)
[2018-12-29] MEDS ORDERED: MAGNESIUM CITRATE 300 ML BOT ONE (13:40)
[2018-12-29 19:13] VITALS: BP 128/56; TEMP 98; O2SAT 97
== END 2018-12-29 14:04 | disposition home or self-care (01) ==
LOC: ER 09:34
DX: K59.00 Constipation, unspecified (principal); M62.838 Other muscle spasm; I10 Essential (primary) hypertension; K21.9 Gastro-esophageal reflux disease without esophagitis; Z88.0 Allergy status to penicillin; Z88.2 Allergy status to sulfonamides
CPT/HCPCS: 96361; 85025; 80048; 36415; 80076; 83690; 74177; 96374; 99284; Q9967; J2405; 81003; 81015

== ENCOUNTER 2019-07-19 09:48 | Observation (INO) | payer MEDICARE ==
--- OUTSIDE RECORDS SUMMARY | 2019-07-19 09:51 | XMS REPORT ---
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 Active current pathological fracture, sequela Problem Osteoarthritis of multiple joints, M15.9 Active unspecified osteoarthritis type Problem Seasonal allergies J30.2 Active Problem 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
--- OUTSIDE RECORDS SUMMARY | 2019-07-19 09:51 | XMS REPORT ---
:1930 Author Organization [facility] Address [address] [place] [address] Dr. Courtney [address] [place] [id number] Care Team Providers Name Role Phone Unavailable Unavailable Unavailable Problems This patient has no known problems. Allergies, Adverse Reactions, Alerts This patient has no known allergies or adverse reactions. Medications This patient has no known medications.
--- OUTSIDE RECORDS SUMMARY | 2019-07-19 09:52 | XMS REPORT | Summary of Care ---
:1930 Author Organization [facility] Address [address] [place] [id number] Care Team Providers Name Role Phone Nilda Ferrarochavez Primary Care Provider Reason for Visit Reason Comments Skin Check Encounter Details Date Type Department Care Team Description 07/06/2019 Office Visit [facility] Jmaal Sampson, Actinic keratosis ( Primary Dx); Dermatology, Jessica TONG Seborrheic keratoses; [address] History of nonmelanoma skin cancer [address] [facility] [address] [address] [place] [address] Allergies Active Allergy Reactions Severity Noted Date Comments Albuterol Anxiety 03/30/2011 Didn't like the way it made her feel Penicillins Rash 02/22/2011 Sulfa (Sulfonamide Rash 02/22/2011 Antibiotics) documented as of this encounter (statuses as of 07/06/2019) Medications Medication Sig Dispensed Refills Start Date End Date Status Aliskiren-Hydrochlorothiaz Take 12.5 mg 0 Active fausto (TEKTURNA HCT) by mouth daily 300-12.5 mg Tab before a meal. omeprazole (PRILOSEC) 40 Take 40 mg by 0 Active mg capsule mouth daily. amLODIPine (NORVASC) 10 mg Take 10 mg by 0 Active tablet mouth daily. IBUPROFEN/DIPHENHYDRAMINE Take by mouth 0 Active (IBUPROFEN PM ORAL) at bedtime. hydrochlorothiazide 0 11/17/2012 Active (ESIDRIX) 25 mg tablet lisinopril-hydrochlorothia 0 10/15/2012 Active zide (PRINZIDE,ZESTORETIC) 10-12.5 mg per tablet traMADOL (ULTRAM) 50 mg 0 10/30/2012 Active tablet valsartan-hydrochlorothiaz 0 11/10/2012 Active fausto (DIOVAN-HCT) 80-12.5 mg per tablet RESTASIS 0.05 % drops 0 09/17/2012 Active hydrocortisone 1 % Apply to 60 g 0 12/08/2012 Active creamIndications: affected Intertrigo area(s) daily. clotrimazole (LOTRIMIN) 1 Apply to 15 g 1 12/08/2012 Active % topical area(s) at creamIndications: bedtime. Intertrigo omeprazole (PRILOSEC) 20 2 07/27/2015 Active mg capsule NIFEDICAL XL 60 mg tablet 3 08/11/2015 Active prednisoLONE acetate 3 08/24/2015 Active (PRED-FORTE) 1 % ophthalmic suspension drops cetirizine (ZYRTEC) 10 mg 1 09/21/2015 Active tablet documented as of this encounter (statuses as of 07/06/2019) Active Problems Problem Noted Date History of nonmelanoma skin cancer 12/20/2014 History of basal cell carcinoma of skin 06/29/2013 Mohs defect of nasal ala 12/31/2011 documented as of this encounter (statuses as of 07/06/2019) Social History Tobacco Use Types Packs/Day Years Used Date Never Smoker Alcohol Use Drinks/Week oz/Week Comments No 0 Standard drinks or equivalent 0.0 Sex Assigned at Date Recorded Not on file Job Start Date Occupation Industry Not on file Not on file Not on file Travel History Travel Start Travel End No recent travel history available. documented as of this encounter Last Filed Vital Signs Not on filedocumented in this encounter Progress Notes Petr Woodall MD - 07/06/2019 3:30 PM CST Cc: scaly spots HPI Mely Vivas is a 88 year old female with a history of NMSC who presents for follow up skin check. Patient complains of lesions on her forehead, present x months. Lesions are scaly, but asymptomaticotherwise. No treatments tried. 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 15 g 1 hydrochlorothiazide (ESIDRIX) 25 mg tablet hydrocortisone 1 % cream Apply to affected area(s) daily. 60 g 0 lisinopril-hydrochlorothiazide (PRINZIDE,ZESTORETIC) 10-12.5 mg per tablet RESTASIS 0.05 % drops traMADOL (ULTRAM) 50 mg tablet valsartan-hydrochlorothiazide (DIOVAN-HCT) 80-12.5 mg per tablet IBUPROFEN/DIPHENHYDRAMINE (IBUPROFEN PM ORAL) Take by mouth at bedtime. amLODIPine (NORVASC) 10 mg tablet Take 10 mg by mouth daily. omeprazole (PRILOSEC) 40 mg capsule Take 40 mg by mouth daily. Aliskiren-Hydrochlorothiazide (TEKTURNA HCT) 300-12.5 mg Tab Take 12.5 mg by mouth daily before a meal. No current facility-administered medications on file prior to visit. Review of Systems (-)=negative (+)=positive Constitutional: pain (-) Skin: itching (-), scaling (+), color change (-) , growths (+) Heme: bleeding (-) Physical Exam There were no vitals taken for this visit. Positive (+), Negative (-) General : No acute distress Psychiatric: Normal affect Pulmonary: Breathing unlabored FACE: Positive EYES: Negative NOSE: Positive EARS: Negative SCALP: Negative NECK: Negative CHEST: Positive ABDOMEN: Negative BACK: Positive RIGHT ARM: See image LEFT ARM: Positive RIGHT LEG: Negative LEFT LEG: Positive (-)=Negative,(+)=Positive Actinic Keratosis (A): erythematous scaling papules Luna Hemaniogioma (CH): smooth red and purple papules Dermatitis Erythema (DE): mild to moderate erythema and scaling Dermatitis Lichenified (DL): lichenification and thickening Dermatitis Weeping (DW): weeping and excoriation Inflamed Seborrheic Keratosis (ISK): inflamed warty brown papules and plaques Millium (ML): Small white cystic papule Molluscum Contagiosum (MC): umbilicated papule Nevus Macular (NM): well circumscribed evenly pigmented macule Nevus Papular (MEAT STRINGER): well circumscribed evenly pigmented papule Psoriasis Circumscribed (PC): well circumscribed erythema and scaling Psoriasis Diffuse (PD): diffuse patches of erythema and scaling Seborrheic Keratosis (SK): verrucous brown papules and plaques Scar (SR): cicatricial change Verruca Vulgarus (W): warty hyperkeratotic papule Assessment/Plan Actinic Keratosis/es - Discussed etiology, prognosis and treatment options with patient. Discussed relation to sun exposure and premalignant potential of lesions - LN2 x 13 (warned about risk of pigmentation change, erythema, scar and blistering) - Counseled patient about sunscreen/sun avoidance/sun protection. Seborrheic keratoses - Benign appearing; patient reassured. - Discussed diagnosis and treatment options. - LN2 offered. 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 RTC 6 months or as scheduled with Dr. Bradshaw Patient seen and examined with Dr. Sampson, who agrees with the plan of care. Petr Woodall MD PGY-2, Department of Dermatology 07/06/2019 documented in this encounter Plan of Treatment Date Type Specialty Care Team Description 09/17/2019 Office Visit Dermatology Luis Bradshaw MD [id number] [place] [address] [phone] Health Maintenance Due Date Last Done Comments DTaP,Tdap,and Td Vaccines (1 - Tdap) 07/21/1943 Zoster Recombinant Vaccine (SHINGRIX) (1 of 2) 1982 Medicare Wellness Visit 1997 Osteoporosis Screening 1997 PNEUMOCOCCAL VACCINES 65+ (1 of 2 - PCV13) 1997 INFLUENZA VACCINE (#1) 2019 documented as of this encounter Results Not on filedocumented in this encounter Visit Diagnoses Diagnosis Actinic keratosis - Primary Seborrheic keratoses History of nonmelanoma skin cancer Personal history of other malignant neoplasm of skin documented in this encounter Insurance Payer Benefit Plan / Subscriber ID Effective Phone Address Type Group Dates 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
--- OUTSIDE RECORDS SUMMARY | 2019-07-19 09:52 | XMS REPORT ---
:1930 Author Organization eClinicalWorks Care Team Providers Name Role Phone Barnhart, Na Provider Role Unavailable Allergies, Adverse Reactions, Alerts Substance Reaction Event Type PCN Info Not Available Drug Allergy Tekturna Info Not Available Drug Allergy Diovan Info Not Available Drug Allergy Problems Problem Type Condition Code Onset Dates Condition Status Assessment Blood tests for routine general Z00.00 Active physical examination Assessment Status post kyphoplasty Z98.890 Active Problem Hyperlipidemia E78.5 Active Assessment Non-traumatic compression fracture M48.54XD Active of T12 thoracic vertebra with routine healing, subsequent encounter Problem Irritable bowel syndrome with both K58.2 Active constipation and diarrhea Assessment Fatty liver K76.0 Active Problem Unsteady gait R26.81 Active Problem Osteoarthritis of multiple joints, M15.9 Active unspecified osteoarthritis type Problem Seasonal allergies J30.2 Active Problem Acute allergic rhinitis J30.9 Active Problem Age-related 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 Active current pathological fracture, sequela Assessment Congestion of paranasal sinus R09.81 Active Assessment Benign essential HTN I10 Active Problem Urinary tract infection without N39.0 Active hematuria, site unspecified Assessment Hyperlipidemia E78.5 Active Problem 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 Active levels Problem Constipation, unspecified K59.00 Active constipation type Problem Status post kyphoplasty Z98.890 Active Problem Non-traumatic compression fracture M48.54XD Active of T12 thoracic vertebra with routine healing, subsequent encounter Assessment Urinary tract infection without N39.0 Active hematuria, site unspecified Assessment 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 75392293345 5 MG Orally Jul 17, Active 1 tablets Twice a day 2017 Singulair [facility] 18310111827 10 MG Orally Active 1 tablet in Once a day the evening Omeprazole [facility] 61595412967 20 MG Orally Active 1 capsule Once a day Procardia XL [facility] [address]-56 60 MG Orally Active 1 tablet Once a day Cyclobenzaprine [facility] 13591510964 5 MG Orally Active 1 tablet as HCl Three times a needed day Tramadol HCl ND 45837400487 50 MG Orally Active 1 tablet as every 8 hrs needed prn Triamcinolone [facility] 06727608429 0.1 % July Active 1 application Acetonide Externally 12, to affected Twice a day 2018 area Restasis [facility] 84868804152 0.05 % Active 1 drop into Ophthalmic affected eye Twice a day Aspirin [address] [facility] 65540088734 81 MG Orally Active 1 tablet Once a day Cipro [facility] 02999537459 250 MG Orally May 01Apr Active 1 tablet every 12 hrs 2018 Ibuprofen [facility] 28054979379 600 MG Orally Active 1 tablet with Three times a food or milk day as needed Zyrtec Allergy [facility] 02543901321 10 MG Orally Active 1 tablet Once a day Nasonex [facility] 92063029531 50 MCG/ACT Active 2 sprays in Nasally Once a each nostril day Topiramate [facility] 97696465958 25 MG Orally Jul 17, Active 1 tablet Twice a day 2017 Results Name Result Date Reference Range Unit Abnormality Flag URINALYSIS AUTO W/O SCOPE (94689) ----JOSE D 1+ 20190501 ----NIT neg 20190501 ----PROTEIN 1+ 20190501 ----pH 6.5 20190501 ----GLUCOSE neg 20190501 ----KETONES trace 20190501 ----SPECIFIC GRAVITY 1.020 20190501 ----BLO neg 20190501 Urine Culture, Routine ----Result 1 No growth 20190501 ----Urine Culture, Final report 20190501 Routine Summary Purpose eClinicalWorks Submission
--- OUTSIDE RECORDS SUMMARY | 2019-07-19 09:52 | XMS REPORT | Summary of Care ---
:[address] [facility] [employer] [facility] Address [address] [place] [id number] Care Team Providers Name Role Phone Nilda Ferrarochavez Primary Care Provider Reason for Visit Reason Comments Skin Check Encounter Details Date Type Department Care Team Description 07/06/2019 Office Visit [facility] Jamal Sampson, Actinic keratosis ( Primary Dx); Dermatology, Jessica TONG Seborrheic keratoses; [address] History of nonmelanoma skin cancer [address] [facility] [address] [address], [address] [place] [address] Allergies Active Allergy Reactions Severity Noted Date Comments Albuterol Anxiety 03/30/2011 Didn't like the way it made her feel Penicillins Rash 02/22/2011 Sulfa (Sulfonamide Rash 02/22/2011 Antibiotics) documented as of this encounter (statuses as of 07/07/2019) Medications Medication Sig Dispensed Refills Start Date [...] as of this encounter (statuses as of 07/07/2019) Active Problems Problem Noted Date History of nonmelanoma skin cancer 12/20/2014 History of basal cell carcinoma of skin 06/29/2013 Mohs defect of nasal ala 12/31/2011 documented as of this encounter (statuses as of 07/07/2019) Social History Tobacco Use Types Packs/Day Years [...] on filedocumented in this encounter Progress Notes Jamal Sampson MD - 07/06/2019 3:30 PM CSTI personally examined the patient and agree with Dr. Woodall's resident note as written. I actively participated in the decision-making process. Please see the resident's note for additional details.I was present for the procedure(s). etr Woodall MD - 07/06/2019 3:30 PM CST [...] forehead flap in 2010 SH: Lives in [place] Allergies Allergies Allergen Reactions Albuterol Anxiety Didn't [...] well circumscribed evenly pigmented macule Nevus Papular (BLOCK MASON): well circumscribed evenly pigmented papule Psoriasis Circumscribed [...] Dermatology Luis Bradshaw MD [id number] [place], [place] [id number] Health Maintenance Due Date Last Done Comments [...] ID Effective Phone Address Type Group Dates [facility] [id number] 2015-[facility] Medicare [facility] [employer] - HEALTHCARE PPO MANAGED MEDICARE GOLD MEDICARE documented as of this encounter Advance Directives Type Date Recorded 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
--- OUTSIDE RECORDS SUMMARY | 2019-07-19 09:52 | XMS REPORT | Summary of Care ---
:1930 Author Organization [facility] [email or web address] [facility] Address [address] [place] [id number] Care Team Providers Name Role Phone Nilda Ferrarochavez Primary Care Provider Reason for Visit Reason Comments Skin Check Encounter Details Date Type Department Care Team Description 07/06/2019 Office Visit [facility] Jamal Sampson, Actinic keratosis ( Primary Dx); Dermatology, Jessica TONG Seborrheic keratoses; [address] History of nonmelanoma skin cancer [address] [facility] [address] [address] [place] [address] Allergies Active Allergy Reactions Severity [...] forehead flap in 2010 SH: Lives in [place] Allergies Allergies Allergen Reactions Albuterol Anxiety Didn't [...] well circumscribed evenly pigmented macule Nevus Papular (FROG SHAKER): well circumscribed evenly pigmented papule Psoriasis Circumscribed [...] Dermatology Luis Bradshaw MD [id number] [place] [address] [phone] Health Maintenance Due Date Last Done Comments [...] Effective Phone Address Type Group Dates 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
[2019-07-19] MEDS ORDERED: NA CHLORIDE 0.9% 1,000 ML ONE (11:01)
--- NOTE | 2019-07-19 11:22 | RAD REPORT ---
EXAM DESCRIPTION: CT - Head Brain Wo Cont - 07/19/2019 11:14 am CLINICAL HISTORY: DIZZINESS Headache, drowsiness COMPARISON: Head Brain Wo Cont dated 11/15/2015; HEAD BRAIN W O CONTRAST dated 01/16/2015 TECHNIQUE: All CT scans are performed using dose optimization technique as appropriate and may inclu de automated exposure control or mA/KV adjustment according to patient size. FINDINGS: No intracranial hemorrhage, hydrocephalus or extra-axial fluid collection.Mild generalized brain atrophy is seen with periventricular chronic microvascular ischemic changes, stable.No areas o f brain edema or evidence of midline shift. The paranasal sinuses and mastoids are clear. The calvarium is intact. IMPRESSION: No acute intracranial abnormality.
[2019-07-19 11:23] LABS: Absolute Lymphocytes (CBC) 1.2 K/uL (0.7-4.9); Basophils % 0.4 % (0-1.3); Hematocrit 39.9 % (36.0-45.0); Lymphocytes % 23.3 % (15.3-44.8); MPV 7.8 fL (7.6-11.3); Protime INR 0.96
[2019-07-19 11:49] LABS: ALT/SGPT 8 U/L (12-78); AST/SGOT 25 U/L (15-37); Albumin 3.5 g/dL (3.4-5.0); Alkaline Phosphatase 63 U/L (45-117); BUN Blood Urea Nitrogen 17 mg/dL (7-18); Bicarbonate 29 mmol/L (21-32); Bilirubin Direct < 0.1 mg/dL (0-0.2); Bilirubin Total 0.4 mg/dL (0.2-1.0); Glucose Level 95 mg/dL (74-106); NT PRO-BNP 113 pg/mL (<450); Potassium 3.7 mmol/L (3.5-5.1); Protein, Total 7.1 g/dL (6.4-8.2); Sodium Level 139 mmol/L (136-145); Troponin (Emerg Dept Use Only) < 0.02 ng/mL (0.0-0.045)
--- NOTE | 2019-07-19 12:23 | RAD REPORT ---
EXAM DESCRIPTION: RAD - Chest Single View - 07/19/2019 11:09 am CLINICAL HISTORY: COUGH Chest pain. COMPARISON: Chest Single View dated 07/21/2016; Chest Pa And Lat (2 Views) dated 03/19/2016; Chest Sin gle View dated 11/15/2015; CHEST SINGLE VIEW dated 01/16/2015 FINDINGS: Portable technique limits examination quality. The lungs are grossly clear. The heart is normal in size. No displaced fractures. IMPRESSION: No acute intrathoracic process suspected.
--- NOTE | 2019-07-19 12:31 | RAD REPORT ---
EXAM DESCRIPTION: US - CP - 07/19/2019 12:25 pm CLINICAL HISTORY: DIZZINESS Headache, drowsiness COMPARISON: Soft Tissue Neck W/Contr dated 06/15/2016 TECHNIQUE: Real-time sonographic evaluation of both carotid systems was performed. Doppler interroga tion was performed with waveform tracing bilaterally. FINDINGS: Normal high resistance waveforms are noted in both external carotid arteries. The common c arotid arteries and internal carotid arteries show normal low resistance waveforms. Mild hard plaque is seen left carotid bulb. Peak systolic and end diastolic velocity values and the I CA/CCA ratios are in the non-hemodynamically significant range. Antegrade flow seen in both vertebral arteries. IMPRESSION: Mild hard plaque is seen left carotid bulb. No evidence of a hemodynamically significant stenosis.
--- NOTE | 2019-07-19 12:50 | EDPHYS ---
Physician Documentation [facility] Name: Mely Vivas Age: 88 yrs Sex: Female : 1930 Arrival Date: 07/19/2019 Time: 09:50 Bed 14 Private MD: Celia Barnhart ED Physician Sedrick Cruz HPI: 07/18 10:54 This 88 yrs old Female presents to ER via Wheelchair with complaints of Fall javier Injury, Dizziness. 10:54 Details of fall: The patient fell from an upright position. Onset: The symptoms/episode javier began/occurred 2 day(s) ago. Associated injuries: The patient sustained no obvious injury. Severity of symptoms: At their worst the symptoms were mild, moderate, in the emergency department the symptoms have improved, moderately. The patient has not experienced similar symptoms in the past. Historical: - Allergies: 10:14 PENICILLINS; ca1 10:14 Sulfa (Sulfonamide Antibiotics); ca1 - Home Meds: 10:14 nifedipine 30 mg Oral TbER 1 tab once daily [Active]; omeprazole 40 mg Oral cpDR 1 cap ca1 once daily [Active]; - PMHx: 10:14 GERD; Hypertension; Vertigo; ca1 - PSHx: 10:14 None; ca1 - Immunization history:: Adult Immunizations up to date, Pneumococcal vaccine is not up to date, Flu vaccine is up to date. - Social history:: Smoking status: Patient denies any tobacco usage or history of. ROS: 10:54 Constitutional: Negative for fever, chills, and weight loss, Eyes: Negative for injury, javier pain, redness, and discharge, ENT: Negative for injury, pain, and discharge, Neck: Negative for injury, pain, and swelling, Cardiovascular: Negative for chest pain, palpitations, and edema, Respiratory: Negative for shortness of breath, cough, wheezing, and pleuritic chest pain, Abdomen/GI: Negative for abdominal pain, nausea, vomiting, diarrhea, and constipation, Back: Negative for injury and pain, : Negative for injury, bleeding, discharge, and swelling, MS/Extremity: Negative for injury and deformity, Skin: Negative for injury, rash, and discoloration, Psych: Negative for depression, anxiety, suicide ideation, homicidal ideation, and hallucinations, Allergy/Immunology: Negative for hives, rash, and allergies, Endocrine: Negative for neck swelling, polydipsia, polyuria, polyphagia, and marked weight changes, Hematologic/Lymphatic: Negative for swollen nodes, abnormal bleeding, and unusual bruising. 10:54 Neuro: Positive for dizziness, weakness. Exam: 10:54 Constitutional: This is a well developed, well nourished patient who is awake, alert, javire and in no acute distress. Head/Face: Normocephalic, atraumatic. Eyes: Pupils equal round and reactive to light, extra-ocular motions intact. Lids and lashes normal. Conjunctiva and sclera are non-icteric and not injected. Cornea within normal limits. Periorbital areas with no swelling, redness, or edema. ENT: Nares patent. No nasal discharge, no septal abnormalities noted. Tympanic membranes are normal and external auditory canals are clear. Oropharynx with no redness, swelling, or masses, exudates, or evidence of obstruction, uvula midline. Mucous membranes moist. Neck: Trachea midline, no thyromegaly or masses palpated, and no cervical lymphadenopathy. Supple, full range of motion without nuchal rigidity, or vertebral point tenderness. No Meningismus. Chest/axilla: Normal chest wall appearance and motion. Nontender with no deformity. No lesions are appreciated. Cardiovascular: Regular rate and rhythm with a normal S1 and S2. No gallops, murmurs, or rubs. Normal PMI, no JVD. No pulse deficits. Respiratory: Lungs have equal breath sounds bilaterally, clear to auscultation and percussion. No rales, rhonchi or wheezes noted. No increased work of breathing, no retractions or nasal flaring. Abdomen/GI: Soft, non-tender, with normal bowel sounds. No distension or tympany. No guarding or rebound. No evidence of tenderness throughout. Back: No spinal tenderness. No costovertebral tenderness. Full range of motion. Skin: Warm, dry with normal turgor. Normal color with no rashes, no lesions, and no evidence of cellulitis. MS/ Extremity: Pulses equal, no cyanosis. Neurovascular intact. Full, normal range of motion. Neuro: Awake and alert, GCS 15, oriented to person, place, time, and situation. Cranial nerves II-XII grossly intact. Motor strength 5/5 in all extremities. Sensory grossly intact. Cerebellar exam normal. Normal gait. Psych: Awake, alert, with orientation to person, place and time. Behavior, mood, and affect are within normal limits. Vital Signs: 10:10 BP 154 / 62; Pulse 64; Resp 18 S; Temp 97.9(O); Pulse Ox 94% on R/A; Weight 51.71 kg ca1 (R); Height 4 ft. 11 in. (149.86 cm) (R); Pain 0/10; 10:45 BP 142 / 62; Pulse 63; Resp 17 S; Pulse Ox 94% on R/A; ca1 12:00 BP 146 / 76; Pulse 68; Resp 14 S; Pulse Ox 94% on R/A; ca1 13:00 BP 140 / 77; Pulse 62; Resp 16 S; Pulse Ox 96% on R/A; ca1 14:00 BP 158 / 67; Pulse 66; Resp 15; Pulse Ox 97% on R/A; ca1 15:00 BP 131 / 60; Pulse 65; Resp 17 S; Temp 97.9(TE); Pulse Ox 94% on R/A; ca1 10:10 Body Mass Index 23.02 (51.71 kg, 149.86 cm) ca1 MDM: 10:04 Patient medically screened. [facility] 10:55 Data reviewed: vital signs, nurses notes, lab test result(s), EKG, radiologic studies, [facility] CT scan, doppler, plain films. 07/18 10:54 Order name: Basic Metabolic Panel; Complete Time: 12:47 [facility] 07/18 10:54 Order name: CBC with Diff; Complete Time: 12:47 [facility] 07/18 10:54 Order name: LFT's; Complete Time: 12:47 [facility] 07/18 10:54 Order name: Magnesium; Complete Time: 12:47 [facility] 07/18 10:54 Order name: NT PRO-BNP; Complete Time: 12:47 [facility] 07/18 10:54 Order name: PT-INR; Complete Time: 12:47 [facility] 07/18 10:54 Order name: Troponin (emerg Dept Use Only); Complete Time: 12:47 [facility] 07/18 10:54 Order name: XRAY Chest (1 view); Complete Time: 12:47 [facility] 07/18 10:54 Order name: Urine Culture [facility] 07/18 10:54 Order name: CT Head Brain wo Cont; Complete Time: 12:47 [facility] 07/18 10:54 Order name: US Carotid Artery Bilateral; Complete Time: 12:47 [facility] 07/18 12:07 Order name: Urine Dipstick--Ancillary (enter results) ms 07/18 13:01 Order name: CT Abd/Pelvis - IV Contrast Only [facility] 07/18 10:54 Order name: EKG; Complete Time: 10:55 [facility] 07/18 10:54 Order name: Cardiac monitoring; Complete Time: 10:56 [facility] 07/18 10:54 Order name: EKG - Nurse/Tech; Complete Time: 10:56 [facility] 07/18 10:54 Order name: IV Saline Lock; Complete Time: 10:56 [facility] 07/18 10:54 Order name: Labs collected and sent; Complete Time: 10:56 [facility] 07/18 10:54 Order name: O2 Per Protocol; Complete Time: 10:56 [facility] 07/18 10:54 Order name: O2 Sat Monitoring; Complete Time: 10:56 [facility] 07/18 10:54 Order name: Urine Dipstick-Ancillary (obtain specimen); Complete Time: 11:58 [facility] Administered Medications: 11:30 Drug: NS 0.9% 500 ml Route: IV; Rate: bolus; Site: right antecubital; ca1 12:07 Follow up: Response: No adverse reaction; IV Status: Completed infusion ca1 12:07 Drug: NS 0.9% 1000 ml Route: IV; Rate: 125 ml/hr; Site: left antecubital; ca1 12:51 Follow up: Urine output 120 ml; Response: No adverse reaction; IV Status: Infusion ca1 continued upon admission 12:52 Drug: Meclizine 25 mg Route: PO; ca1 14:16 Follow up: Response: No adverse reaction; Marked relief of symptoms ca1 12:53 Drug: Aspirin 162 mg Route: PO; ca1 14:16 Follow up: Response: No adverse reaction ca1 13:00 Drug: Rocephin 1 grams Route: IV; Rate: per protocol; Site: left antecubital; ca1 14:16 Follow up: Response: No adverse reaction; IV Status: Completed infusion ca1 Disposition: 07/19/19 12:49 Hospitalization ordered by Isaac Ware for Inpatient Admission. Preliminary diagnosis are Syncope and collapse, Dizziness and giddiness, Urinary tract infection, site not specified. - Bed requested for Telemetry/MedSurg (Inpatient). - Status is Inpatient Admission. ca1 - Condition is Fair. - Problem is new. - Symptoms have improved. Signatures: Dispatcher [employer] EDMS Sedrick Cruz MD MD cha Villarreal, Maria ms Catalina Ambrocio RN RN ca1 Corrections: (The following items were deleted from the chart) 12:56 12:49 Hospitalization Ordered by Ilir Boateng DO for Inpatient Admission. Preliminary javier diagnosis is Syncope and collapse; Dizziness and giddiness; Urinary tract infection, site not specified. Bed requested for Telemetry/MedSurg (Inpatient). Status is Inpatient Admission. Condition is Fair. Problem is new. Symptoms have improved. javier 14:42 12:56 07/19/2019 12:49 Hospitalization Ordered by Isaac Ware for Inpatient ms Admission. Preliminary diagnosis is Syncope and collapse; Dizziness and giddiness; Urinary tract infection, site not specified. Bed requested for Telemetry/MedSurg (Inpatient). Status is Inpatient Admission. Condition is Fair. Problem is new. Symptoms have improved. [facility] 15:39 14:42 07/19/2019 12:49 Hospitalization Ordered by Isaac Ware for Inpatient ca1 Admission. Preliminary diagnosis is Syncope and collapse; Dizziness and giddiness; Urinary tract infection, site not specified. Bed requested for Telemetry/MedSurg (Inpatient). Status is Inpatient Admission. Condition is Fair. Problem is new. Symptoms have improved. ms
--- NOTE | 2019-07-19 12:50 | ER ---
Nurse's Notes [facility] Name: Mely Vivas Age: 88 yrs Sex: Female : 1930 Arrival Date: 07/19/2019 Time: 09:50 Bed 14 Private MD: Celia Barnhart Diagnosis: Syncope and collapse;Dizziness and giddiness;Urinary tract infection, site not specified Presentation: 07/18 10:10 Chief complaint: Patient states: Dehydrated and dizzy for a couple of days. Yesterday, ca1 was not feeling good. Today, after shower, felt dizzy. Sat down on the commode, fell against the wall denies hurting self from the fall. Coronavirus screen: The patient has NOT traveled to [place] in the past 14 days. The patient has NOT had contact with known and/or suspected case of Coronavirus. Ebola Screen: Patient negative for fever greater than or equal to 101.5 degrees Fahrenheit, and additional compatible Ebola Virus Disease symptoms Patient denies exposure to infectious person. Patient denies travel to an Ebola-affected area in the 21 days before illness onset. No symptoms or risks identified at this time. Initial Sepsis Screen: Does the patient meet any 2 criteria? No. Patient's initial sepsis screen is negative. Does the patient have a suspected source of infection? No. Patient's initial sepsis screen is negative. Risk Assessment: Do you want to hurt yourself or someone else? Patient reports no desire to harm self or others. Onset of symptoms was July 19, 2019. Care prior to arrival: None. 10:10 Method Of Arrival: Wheelchair ca1 10:10 Acuity: RALPH 3 ca1 Triage Assessment: 10:14 General: Appears in no apparent distress. comfortable, Behavior is calm, cooperative, ca1 appropriate for age. General: Reports feeling ill for. Pain: Denies pain. EENT: No signs and/or symptoms were reported regarding the EENT system. Neuro: Level of Consciousness is awake, alert, obeys commands, Oriented to person, place, time, situation, Appropriate for age Emergency Planning And Response Manager are equal bilaterally Moves all extremities. Speech is normal, Facial symmetry appears normal, Pupils are PERRLA, Intact Reports dizziness. Cardiovascular: Heart tones S1 S2 present Capillary refill < 3 seconds Patient's skin is warm and dry. Rhythm is sinus rhythm. Respiratory: Airway is patent Respiratory effort is even, unlabored, Respiratory pattern is regular, symmetrical, Breath sounds are clear bilaterally. GI: Abdomen is flat, non-distended, Bowel sounds present X 4 quads. Abd is soft and non tender X 4 quads. Reports nausea. : No signs and/or symptoms were reported regarding the genitourinary system. Derm: Skin is intact, is fragile, is thin, with poor turgor Skin is pink, warm \T\ dry. Musculoskeletal: Circulation, motion, and sensation intact. Capillary refill < 3 seconds. Historical: - Allergies: 10:14 PENICILLINS; ca1 10:14 Sulfa (Sulfonamide Antibiotics); ca1 - Home Meds: 10:14 nifedipine 30 mg Oral TbER 1 tab once daily [Active]; omeprazole 40 mg Oral cpDR 1 cap ca1 once daily [Active]; - PMHx: 10:14 GERD; Hypertension; Vertigo; ca1 - PSHx: 10:14 None; ca1 - Immunization history:: Adult Immunizations up to date, Pneumococcal vaccine is not up to date, Flu vaccine is up to date. - Social history:: Smoking status: Patient denies any tobacco usage or history of. Screenin:16 Abuse screen: Denies threats or abuse. Denies injuries from another. Nutritional ca1 screening: No deficits noted. Tuberculosis screening: No symptoms or risk factors identified. Fall Risk Fall in past 12 months (25 points). IV access (20 points). Gait- Weak (10 pts.). Total Charles Fall Scale indicates High Risk Score (45 or more points). Fall prevention measures have been instituted. Side Rails Up X 2 Frequent Obs/Assessments Occuring As available patient and family educated on Fall Prevention Program and Strategies. Assessment: 10:16 Reassessment: SEE TRIAGE ASSESSMENT. ca1 11:02 Reassessment: Patient appears in no apparent distress at this time. Patient and/or ca1 family updated on plan of care and expected duration. Pain level reassessed. Patient is alert, oriented x 3, equal unlabored respirations, skin warm/dry/pink. 12:10 Reassessment: Patient appears in no apparent distress at this time. Patient and/or ca1 family updated on plan of care and expected duration. Pain level reassessed. Patient is alert, oriented x 3, equal unlabored respirations, skin warm/dry/pink. 12:11 Reassessment: US at bedside. ca1 13:19 Reassessment: Patient appears in no apparent distress at this time. Patient and/or ca1 family updated on plan of care and expected duration. Pain level reassessed. Patient is alert, oriented x 3, equal unlabored respirations, skin warm/dry/pink. 14:14 Reassessment: Son's number. Charles [phone]. Reassessment: Patient appears in no ca1 apparent distress at this time. Patient and/or family updated on plan of care and expected duration. Pain level reassessed. Patient is alert, oriented x 3, equal unlabored respirations, skin warm/dry/pink. 15:10 Reassessment: Patient appears in no apparent distress at this time. Patient and/or ca1 family updated on plan of care and expected duration. Pain level reassessed. Patient is alert, oriented x 3, equal unlabored respirations, skin warm/dry/pink. Vital Signs: 10:10 BP 154 / 62; Pulse 64; Resp 18 S; Temp 97.9(O); Pulse Ox 94% on R/A; Weight 51.71 kg ca1 (R); Height 4 ft. 11 in. (149.86 cm) (R); Pain 0/10; 10:45 BP 142 / 62; Pulse 63; Resp 17 S; Pulse Ox 94% on R/A; ca1 12:00 BP 146 / 76; Pulse 68; Resp 14 S; Pulse Ox 94% on R/A; ca1 13:00 BP 140 / 77; Pulse 62; Resp 16 S; Pulse Ox 96% on R/A; ca1 14:00 BP 158 / 67; Pulse 66; Resp 15; Pulse Ox 97% on R/A; ca1 15:00 BP 131 / 60; Pulse 65; Resp 17 S; Temp 97.9(TE); Pulse Ox 94% on R/A; ca1 10:10 Body Mass Index 23.02 (51.71 kg, 149.86 cm) ca1 ED Course: 09:50 Patient arrived in ED. rg4 09:50 Celia Barnhart MD is Private Physician. rg4 09:56 Catalina Ambrocio, DANIELLA is Primary Nurse. ca1 10:04 Sedrick Cruz MD is Attending Physician. javier 10:13 Triage completed. ca1 10:14 Arm band placed on. EKG completed in triage. Results shown to MD. ca1 10:16 Patient has correct armband on for positive identification. Placed in gown. Bed in low ca1 position. Call light in reach. Side rails up X2. forge hand on. Pulse ox on. NIBP on. Warm blanket given. 10:30 Initial lab(s) drawn, by me, sent to lab. EKG done. Inserted saline lock: 20 gauge in kj1 left antecubital area, using aseptic technique. Blood collected. 11:10 XRAY Chest (1 view) In Process Unspecified. EDMS 11:14 CT completed. Patient tolerated procedure well. Patient moved back from CT. mw3 11:14 CT Head Brain wo Cont In Process Unspecified. EDMS 12:21 Ultrasound completed. Patient tolerated well. sg3 12:23 US Carotid Artery Bilateral In Process Unspecified. EDMS 12:49 Ilir Boateng DO is Hospitalizing Provider. javier 12:56 Isaac Ware is Hospitalizing Provider. javier 13:20 No provider procedures requiring assistance completed. Patient admitted, IV remains in ca1 place. 13:50 CT completed. Patient tolerated procedure well. Patient moved back from CT. mw3 13:51 CT Abd/Pelvis - IV Contrast Only In Process Unspecified. EDMS Administered Medications: 11:30 Drug: NS 0.9% 500 ml Route: IV; Rate: bolus; Site: right antecubital; ca1 12:07 Follow up: Response: No adverse reaction; IV Status: Completed infusion ca1 12:07 Drug: NS 0.9% 1000 ml Route: IV; Rate: 125 ml/hr; Site: left antecubital; ca1 12:51 Follow up: Urine output 120 ml; Response: No adverse reaction; IV Status: Infusion ca1 continued upon admission 12:52 Drug: Meclizine 25 mg Route: PO; ca1 14:16 Follow up: Response: No adverse reaction; Marked relief of symptoms ca1 12:53 Drug: Aspirin 162 mg Route: PO; ca1 14:16 Follow up: Response: No adverse reaction ca1 13:00 Drug: Rocephin 1 grams Route: IV; Rate: per protocol; Site: left antecubital; ca1 14:16 Follow up: Response: No adverse reaction; IV Status: Completed infusion ca1 Output: 12:51 Urine: 120ml; Total: 120ml. ca1 Outcome: 12:49 Decision to Hospitalize by Provider. javier 15:11 Admitted to Med/surg accompanied by tech, via wheelchair, room 213, with chart, Report ca1 called to DANIELLA Forde 15:11 Condition: stable 15:11 Instructed on the need for admit. 15:39 Patient left the ED. ca1 Signatures: Dispatcher [employer] EDSedrick Mcdonough MD MD cha Garcia, Rubi rg4 Jessica Jacobs 3 Norma Goodwin mw3 Catalina Ambrocio RN RN ca1 Jesica Tafoya kj1
[2019-07-19] MEDS ORDERED: CEFTRIAXONE/SWI 1gm 1 GM/10 ML SYR ONE (12:57)
[2019-07-19] MEDS ORDERED: MECLIZINE HCL 12.5 MG TAB ONE (12:57)
[2019-07-19] MEDS ORDERED: ASPIRIN EC 81 MG TAB PO ONE (12:57)
[2019-07-19 13:05] LABS: Urine Blood NEGATIVE (NEG); Urine Glucose NEGATIVE (NEG); Urine Protein NEGATIVE (NEG)
--- NOTE | 2019-07-19 14:02 | P.HP ---
Certification for Inpatient Patient admitted to: Observation With expected LOS: <2 Midnights Practitioner: I am a practitioner with admitting privileges, knowledge of patient current condition, hospital course, and medical plan of care. Services: Services provided to patient in accordance with Admission requirements found in Title 42 Section 412.3 of the Code of Federal Regulations Patient History Date of Service: 07/19/19 Reason for admission: Vertigo, fall History of Present Illness: 88-year-old woman with a history of hypertension and vertigo presented to the ED with a complaint of dizziness and a fall. Patient reports she just had a shower and was using using the commode when she felt dizzy and fell on her right side. She stated she broke her fall with her hands but hit her head against the wall. Patient denied any palpitation or chest pain prior to the fall. She reports constipation and straining during the bowel movement. She has a history of vertigo. She also lost her right hearing around the same time she was diagnosed with vertigo. 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 head in the ED shows no acute disease. EKG demonstrated sinus rhythm, no arrhythmia. Initial troponin is negative. Chest x-ray demonstrated no acute disease. Patient is hospitalized for further evaluation. Allergies Penicillins Allergy (Unknown, Verified 07/21/16 07:28) Itching/Hives/Rash Sulfa (Sulfonamide Antibiotics) [Sulfa(Sulfonamide Antibiotics)] Allergy ( Unknown, Verified 07/21/16 07:28) Itching/Hives/Rash azithromycin [From Azasite] Allergy (Verified 07/21/16 07:28) Unknown Albuterol Allergy (Uncoded 07/21/16 07:28) Unknown Home Medications: Cetirizine HCl [Zyrtec] 1 tab PO BEDTIME 11/15/15 Nifedipine [Nifedical Xl] 1 tab PO BEDTIME 11/15/15 Omeprazole 1 cap PO DAILY 11/15/15 - Past Medical/Surgical History Diabetic: No -: Mitral valve prolapse, seen by cardiology -: Skin cancers to the nose, leg -: Hypertension -: TIA -: Ocular pemphigoid, seen by ophthalmology -: Skin cancers removed from the nose, leg -: 4 C-sections Psychosocial/ Personal History: She is a , has 4 children. She is retired. She currently lives by herself. She is in the process of moving to [place] with her daughter. - Family History Father -: Heart disease, Diabetes Mother -: Stroke - Social History Alcohol use: No CD- Drugs: No Caffeine use: Yes Review of Systems Other: Except as documented, all other systems reviewed and negative. Physical Examination - Physical Exam General: Alert, In no apparent distress, Oriented x3 HEENT: Atraumatic, Mucous membr. moist/pink, Other (Corneal opacity right eye. Right eye ptosis), Sclerae nonicteric Neck: Supple, 2+ carotid pulse no bruit, JVD not distended, No Thyromegaly Respiratory: Clear to auscultation bilaterally, Normal air movement Cardiovascular: No edema, Regular rate/rhythm, Normal S1 S2, No murmurs Capillary refill: <2 Seconds Gastrointestinal: Normal bowel sounds, Soft and benign, No tenderness Musculoskeletal: No swelling, No erythema Integumentary: No rashes, No erythema Neurological: Normal speech, Normal strength at 5/5 x4 extr, Other - Studies Laboratory Data (last 24 hrs) 07/19/19 10:38: PT 11.4, INR 0.96 07/19/19 10:38: WBC 5.1, Hgb 13.3, Hct 39.9, Plt Count 184 07/19/19 10:38: Sodium 139, Potassium 3.7, BUN 17, Creatinine 0.79, Glucose 95, Magnesium 2.0, Total Bilirubin 0.4, AST 25, ALT 8 L, Alkaline Phosphatase 63 Assessment and Plan - Problems (Diagnosis) (1) Fall Current Visit: Yes Status: Acute (2) Vertigo Current Visit: Yes Status: Acute (3) History of TIA (transient ischemic attack) Current Visit: No Status: Chronic (4) Hypertension Onset Date: 11/16/15 Current Visit: No Status: Chronic Qualifiers: Hypertension type: essential hypertension Qualified Code(s): I10 - Essential (primary) hypertension (5) Near syncope Current Visit: Yes Status: Acute - Plan Near-syncope episode likely related to vasovagal event. Place under observation. IV hydration. Aspirin Hold BP meds and monitor BP MRI of the brain to assess for inner ear disease Obtain echocardiogram. Trend troponin. Check lipid profile. - Advance Directives Does patient have a Living Will: No Does patient have a Durable POA for Healthcare: No - Code Status/Comfort Care Code Status Assessed: Yes Code Status: Full Code
--- NOTE | 2019-07-19 14:02 | RAD REPORT ---
EXAM DESCRIPTION: CTAbdomen Pelvis W Contrast - 07/19/2019 1:50 pm CLINICAL HISTORY: Abdominal pain. ABD PAIN COMPARISON: Abdomen Pelvis W Contrast dated 06/26/2019; Abdomen Pelvis W Contrast dated 12/29/2018; Abdomen Pelvis W Contrast dated 12/20/2017; Abdomen Pelvis W Contrast dated 10/04/2016 TECHNIQUE: Biphasic CT imaging of the abdomen and pelvis was performed with 100 ml non-ionic IV cont rast. All CT scans are performed using dose optimization technique as appropriate and may include automated exposure control or mA/KV adjustment according to patient size. FINDINGS: Emphysematous lung bases. Mild fatty liver is seen. No focal mass or biliary dilatation. The spleen, pancreas, adrenal glands a re normal. No hydronephrosis of either kidney. Small benign cysts are present in both kidneys. No bowel obstruction, free air, free fluid or abscess. Moderate stool is present in the rectosigmoid colon. The appendix is normal. No evidence of significant lymphadenopathy. T12 vertebral body fracture is seen with vertebroplasty cement in place. Moderate degenerative levosc oliosis. No acute fracture demonstrated. IMPRESSION: No acute intra-abdominal or pelvic finding.
[2019-07-19] MEDS ORDERED: ONDANSETRON 4 MG/2 ML VIAL IV PRN (15:50)
[2019-07-19] MEDS: ENOXAPARIN 40 MG/0.4 ML SQ SCH (16:00)
[2019-07-19] MEDS: NA CHLORIDE 0.9% 1,000 ML IV SCH (17:11)
[2019-07-19 17:40] VITALS: BMI 23.0
[2019-07-19] MEDS ORDERED: PNEUMOCOCCAL VACCINE 0.5 ML IMVAC ONE (21:00)
[2019-07-19] MEDS ORDERED: IBUPROFEN 400 MG TAB PO ONE (22:42)
[2019-07-20] MEDS: NA CHLORIDE 0.9% 1,000 ML IV SCH ×2 (01:50→11:50)
[2019-07-20 02:16] LABS: Urine Appearance CLEAR; Urine Bilirubin NEGATIVE (NEG); Urine Blood NEGATIVE (NEG); Urine Color YELLOW; Urine Glucose NEGATIVE (NEG); Urine Protein NEGATIVE (NEG); Urine Specific Gravity >=1.030 (1.005-1.030)
[2019-07-20 02:17] LABS: Urine Microscopic Reflex NO UMIC
[2019-07-20 06:10] LABS: Absolute Lymphocytes (CBC) 1.5 K/uL (0.7-4.9); Basophils % 0.6 % (0-1.3); Hematocrit 33.7 % (36.0-45.0); Lymphocytes % 44.7 % (15.3-44.8); MPV 7.8 fL (7.6-11.3)
[2019-07-20 06:21] LABS: BUN Blood Urea Nitrogen 14 mg/dL (7-18); Bicarbonate 26 mmol/L (21-32); Glucose Level 82 mg/dL (74-106); HDL Cholesterol 52 mg/dL (40-60); LDL Cholesterol, Calculated 105 (<130); Magnesium 1.9 mg/dL (1.8-2.4); Phosphorus 3.2 mg/dL (2.5-4.9); Potassium 3.6 mmol/L (3.5-5.1); Sodium Level 143 mmol/L (136-145)
[2019-07-20] MEDS ORDERED: POTASSIUM CL SA 10 MEQ TAB PO ONE (09:00)
[2019-07-20] MEDS: ENOXAPARIN 40 MG/0.4 ML SQ SCH (09:54)
[2019-07-20 11:01] VITALS: O2SAT 96
--- NOTE | 2019-07-20 11:47 | ECHO ---
HEIGHT: 4 ft 11 in WEIGHT: 114 lb 0 oz DATE OF STUDY: 07/20/[address]: karlos lopez 2-DIMENSIONAL: YES M.MODE: YES DOPPLER: YES COLOR FLOW: YES TDS: NO PORTABLE: NO DEFINITY: NO BUBBLE STUDY: NO DIAGNOSIS: NEAR SYNCOPE CARDIAC HISTORY: CATHERIZATION: NO SURGERY: NO PROSTHETIC VALVE: NO PACEMAKER: NO MEASUREMENTS (cm) DIASTOLIC (NORMALS) SYSTOLIC (NORMALS) IVSd 0.8 (0.6-1.2) LA Diam 2.8 (1.9-4.0) LVEF 59% LVIDd 3.6 (3.5-5.7) LVIDs 2.5 (2.0-3.5) %FS 31% LVPWd 1.2 (0.6-1.2) Ao Diam 2.7 (2.0-3.7) 2 DIMENSIONAL ASSESSMENT: RIGHT ATRIUM: NORMAL LEFT ATRIUM: NORMAL RIGHT VENTRICLE: NORMAL LEFT VENTRICLE: NORMAL TRICUSPID VALVE: NORMAL MITRAL VALVE: NORMAL PULMONIC VALVE: NORMAL AORTIC VALVE: NORMAL PERICARDIAL EFFUSION: NONE AORTIC ROOT: NORMAL LEFT VENTRICULAR WALL MOTION: NORMAL DOPPLER/COLOR FLOW: MILD MITRAL AND TRICUSPID REGURGITATION. NORMAL RIGHT VENTRICULAR SYSTOLIC PRESSURE. COMMENTS: NORMAL 2D ECHOCARDIOGRAM. MILD MITRAL AND TRICUSPID REGURGITATION. TECHNOLOGIST: August SEGURA
--- NOTE | 2019-07-20 12:44 | RAD REPORT ---
EXAM DESCRIPTION: MRI - Brain W/Wo Cont - 07/20/2019 12:34 pm CLINICAL HISTORY: Vertigo, syncope COMPARISON: Brain W/Wo Cont dated 04/29/2017; Head Brain Wo Cont dated 07/19/2019 TECHNIQUE: Sagittal and axial T1-weighted images were obtained. Axial PD/heavily T2-weighted and T2- FLAIR images were obtained along with axial DWI/ADC mapping sequences. Coronal heavily T2 weighted s equence obtained. Axial and coronal post-contrast T1-weighted images were also obtained. A 12 ml Mul tihance contrast following utilized. FINDINGS: No intracranial hemorrhage, mass or acute infarction. There is no edema or shift of midli ne structures. No extra-axial fluid collections. Guzmán-matter/white matter junction is preserved. Sig nal voids are seen as a normal finding in the major intracranial vessels. Moderate severity atrophy c hanges are present in the cerebral hemispheres with mild to moderate cerebellar volume loss. Ventricl es are in proportion to the amount of volume loss. Chronic ischemic changes in the white matter of ea ch cerebral hemisphere are minimal. Post-contrast images show normal enhancement. No dural thickening. Mastoid air cells and paranasal sinuses are clear. No globe or orbital content abnormality. No sella or supra sella suspicious finding. IMPRESSION: No acute infarction changes are present. No mass, hemorrhage or acute intracranial findi ng. Moderate cerebral hemisphere and [id number] cerebellar hemisphere atrophy. Ventricles are in pr oportion to the amount of volume loss. Chronic ischemic changes are minimal.
--- NOTE | 2019-07-20 12:45 | RAD REPORT ---
EXAM DESCRIPTION: MRI - Iac W/Wo Cont - 07/20/2019 12:34 pm CLINICAL HISTORY: rule out inner ear disease, mass. vertigo COMPARISON: Brain W/Wo Cont dated 07/20/2019 TECHNIQUE: Axial and coronal thin section T1 imaging obtained prior to and following contrast admini stration. A 12 ml Magnevist contrast volume was utilized. Axial and coronal heavily T2 weighted sequ ences were also obtained. FINDINGS: The cranial nerve VII/VIII nerve complexes are normal in appearance. No signal abnormalit y is seen and no mass noted on post contrast images. The bilateral cochlea, vestibule and semicircul ar canals have a normal appearance. No cerebellopontine angle mass. Brainstem and cerebellar hemisphe res are unremarkable. Mastoid air cells are clear. Middle ear structures are unremarkable as well. No skull base abnormality. Cranial nerves V are unremarkable. No cavernous sinus or sella abnormality. Whole brain findings are detailed in separate MRI brain report. IMPRESSION: Negative contrast-enhanced MRI IAC examination.
[2019-07-20 15:13] VITALS: BP 178/76; TEMP 98.1
--- NOTE | 2019-07-20 15:36 | EKG ---
Test Date: 2019-07-19 Test Time: 10:11:04 [employer] Worker: [place] MEASUREMENT RESULTS: Intervals: Rate: 66 IN: 172 QRSD: 84 QT: 398 QTc: 417 [place]: P: 68 IN: 172 QRS: 13 T: 38 INTERPRETIVE STATEMENTS: Normal sinus rhythm Nonspecific ST abnormality Abnormal ECG Compared to ECG 05/21/2017 05:04:02 No significant changes Electronically Signed On 07-20-19 15:35:06 RESOURCE SPECIALIST TEACHER by Jose Zayas
--- NOTE | 2019-07-20 23:02 | DS ---
Date of Discharge: 07/20/2019 Code status: Full Consultants: Dr. Barry with Neurology. Discharge Diagnoses: 1. Status post fall. 2. Vertigo. 3. History of transient ischemic attack. 4. Essential hypertension. 5. Near syncopal episode. Hospital Course: Patient is an 88-year-old female with past medical history of hypertension, vertigo, history of TIA, comes in with dizziness and fall. 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 Patient was admitted to the hospital for further evaluation. MRI was ordered, which did not show any acute cerebrovascular accident. The internal auditory canal MRI was also done to rule out acoustic neuroma. There were no abnormalities seen. CT scan of the abdomen and pelvis was also done showed no acute intraabdominal or pelvic finding. She did have a T12 vertebral body fracture with vertebroplasty cement in place. She has degenerative levoscoliosis. Carotid artery ultrasound did show mild heart plaque in the left carotid bulb, but no evidence of hemodynamically significant stenosis. Chest x-ray showed no acute intrathoracic process. Patient's echocardiogram showed an EF of 59%, mitral and tricuspid regurgitation. Dr. Barry with Neurology was consulted and patient was recommended to follow up as an outpatient as she did not have any further symptoms. Her vertigo improved, she worked with Physical Therapy and was able to ambulate without difficulty and did not require any assistance. She did have positive orthostatic vital signs. Her amlodipine will be switched over to lisinopril. Patient's UA, which showed negative nitrite and 1+ leukocyte esterase did grow out some gram-negative rods; however, ID and sensitivity at this time are pending. Patient will be sent home on oral antibiotics as well. Patient did not complain of any dysuria or hematuria and this is likely asymptomatic bacteriuria. However, given her fall and age, will likely benefit from treatment. We will follow up on final cultures. Patient is doing well. She was then set up with home health with home health aide and RN for medication management and due to her vision problems and vertigo, she was given education regarding Александр maneuver. Patient is to followup PCP in 2- 3 days, follow up with neurologist, Dr. Barry in 2 weeks. Return to ER for worsening condition. Diet: Heart healthy. Activity: Fall precautions, ambulate with assist. Medications: As per medication reconciliation list. Physical Examination: General: Awake, alert, and oriented x3. No acute distress. Elderly female. CV: S1, S2. Respiratory: Moving air well bilaterally. Abdomen: Abdomen is soft, nontender, nondistended. Positive bowel sounds. Extremities: No clubbing, cyanosis, or edema. Neurologic: Nonfocal. SA/MODL Voice ID: [id number] Report ID: [id number]
== END 2019-07-20 17:38 | disposition home health service (06) ==
LOC: ER 09:48 → ERHOLD 14:16 → 2ND 15:13
PROVIDERS: ADMIT Internal Medicine; ATTEND Family Medicine
DX: R55 Syncope and collapse (principal); R42 Dizziness and giddiness; I10 Essential (primary) hypertension; Z86.73 Personal history of transient ischemic attack (TIA), and cerebral infarction without residual deficits
CPT/HCPCS: 96365; 96361; 93005; 93306; 87088; 85025 ×2; 87086; 80048 ×2; 36415; 83735 ×2; 84100; 85610; 80061; 80076; 84443; 87077; 87186; 81003 ×2; 84484 ×4; 83880; 70450; 74177; 71045; 93880; 70553 ×2; 97112; 97116 ×2; 97161; 97530; 94760 ×3; 99285; Q9967; A9577; J1650; J0696; J7030 ×3; G0378 ×3